=== PATIENT | female | born 1940 | race Caucasian/White ===

== ENCOUNTER 2018-06-19 18:37 | Emergency (ER) | payer OTHER ==
--- NOTE | 2018-06-19 19:59 | PDOC ---
History of Present Illness - General Stated Complaint: FALL Time Seen by Provider: 06/19/18 19:30 History Source: Patient, Family (son) Exam Limitations: No Limitations - History of Present Illness Initial Comments: 06/19/18 20:17 Pt is a 78yo F with PMH of Afib (on Eliquis), CAD, DM, HTN, HLD presenting to ED s/p fall. Pt states she was walking outside and tripped over an uneven part of the sidewalk and fell into a glass door of her building. She states the glass broke and she hit her head and hurt her R arm. She is complaining of pain in the R shoulder with numbness in the 4th and 5th digits, decreased ROM of the shoulder and bleeding from the lip. She also endorses headache. She denies LOC, chest pain, neck pain, blurry vision, SOB, abdominal pain, n/v/d, changes in vision. Slight pain in the L knee. PMD: Andronkaterine Cards: Feliberto PMH: see hpi Meds: see med rec Allergies: nkda Past History - Past Medical History Allergies/Adverse Reactions: Allergies Allergy/AdvReac Type Severity Reaction Status Date / Time No Known Allergies Allergy Verified 06/19/18 20:56 Home Medications: Ambulatory Orders Ezetimibe [Zetia] 10 mg PO DAILY 01/09/14 Rosuvastatin Calcium [Crestor] 40 mg PO DAILY 01/09/14 Glipizide [Glipizide ER] 2.5 mg PO DAILY 07/06/15 Pregabalin [Lyrica] 50 cap PO 1000 07/06/15 Ranitidine [Zantac -] 150 mg PO DAILY tablet 07/08/15 Clopidogrel Bisulfate [Plavix -] 75 mg PO DAILY 02/05/16 Apixaban [Eliquis -] 5 mg PO BID tablet 02/08/16 Valsartan [Diovan] 320 mg PO DAILY tablet 02/08/16 levoFLOXacin [Levaquin -] 250 mg PO DAILY 7 Days tablet 02/08/16 oxyCODONE HCL [Roxicodone -] 5 mg PO Q6H PRN #0 tablet MDD 4 tab 02/08/16 Cardiac Disorders: Yes Diabetes: Yes HTN: Yes Hypercholesterolemia: Yes - Surgical History Abdominal Surgery: Yes Appendectomy: Yes - Suicide/Smoking/Psychosocial Hx Smoking History: Never smoked Have you smoked in the past 12 months: No Hx Alcohol Use: No Drug/Substance Use Hx: No Substance Use Type: None Review of Systems - Review of Systems Constitutional: No: Chills, Fever HEENTM: Yes: Other (lip bleeding). No: Eye Pain, Blurred Vision, Double Vision Respiratory: No: Cough, Shortness of Breath Cardiac (ROS): No: Chest Pain, Lightheadedness, Palpitations, Syncope ABD/GI: No: Constipated, Diarrhea, Nausea, Vomiting : No: Symptoms Reported Musculoskeletal: Yes: See HPI, Other (R shoulder pain) Integumentary: Yes: Other (abrasions) Neurological: Yes: See HPI, Numbness. No: Headache, Paresthesia, Tingling, Tremors, Weakness, Ataxia, Dizziness *Physical Exam - Physical Exam General Appearance: Yes: Appropriately Dressed, Severe Distress, Obese HEENT: positive: EOMI, KUSHAL, Pharynx Normal, Other (superficial inner upper lip lacearation 1-2mm, no other oral lesions. Dried blood around mouth. No nasal bleeding or hematoma). negative: Scleral Icterus (R), Scleral Icterus (L) Respiratory/Chest: positive: Lungs Clear, Normal Breath Sounds. negative: Crackles, Rales, Rhonchi, Stridor, Wheezing Cardiovascular: positive: Regular Rhythm, Regular Rate, S1, S2. negative: Edema , JVD, Murmur Vascular Pulses: Carotid (R): 2+, Carotid (L): 2+, Dorsalis-Pedis (R): 2+, Doralis-Pedis (L): 2+ Musculoskeletal: positive: Other (R shoulder pain. Full rom of elbow, wrist and fingers, no weakness. deformed R shoulder. ). negative: CVA Tenderness, Vertebral Tenderness Extremity: positive: Normal Capillary Refill, Swelling (chronic leg swelling ). negative: Calf Tenderness Integumentary: positive: Normal Color, Dry, Warm, Bruising (upper lip), Other ( abrasions over L knuckles). 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 negative: Sensory Deficit Procedures - Joint Reduction Right Joint Reduction Site: right: Shoulder Pre-Procedure NV Exam: normal Conscious Sedation: Yes (Propafol) Reduction Attempts: 2 Procedure: Traction Counter Traction Post-Procedure NV Exam: normal Post Joint Reduction Film: joint reduced Immobilized: Yes ED Treatment Course - LABORATORY CBC & Chemistry Diagram: 06/19/18 19:49 06/19/18 19:49 Medical Decision Making - Medical Decision Making 06/19/18 20:20 Pt is a 78yo F with PMH of Afib (on Eliquis), CAD, DM, HTN, HLD presenting to ED s/p fall. Pt states she was walking outside and tripped over an uneven part of the sidewalk and fell into a glass door of her building. She states the glass broke and she hit her head and hurt her R arm. She is complaining of pain in the R shoulder with numbness in the 4th and 5th digits, decreased ROM of the shoulder and bleeding from the lip. She also endorses headache. She denies LOC, chest pain, neck pain, blurry vision, SOB, abdominal pain, n/v/d, changes in vision. Slight pain in the L knee. Vitals: PE: R shoulder deformity, ttp R humerous, no lacerations on arm. Dried blood around lips with cut under top lip (superficial), teeth in place, no chipping. Reduced R arm ROM, full rom at elbow, wrist and fingers. sensation intact. radial pulse and brachial pulse of R arm palpable, normal cap refill. No vertebral tenderness, cranial nerves intact, pelvis stable. No knee or hip pain. -fracture v. dislocation -cbc, cmp, coags -CT head, cspine, facial bones, Xray of chest, shoulder and humerus -4mg iv morphine placed pt in sling for comfort 06/19/18 21:10 Pt still in pain. Ordered Fentanyl labs wnl. Cr at baseline. Imaging pending. 06/20/18 01:17 CT head, Cspine and facial bones wnl, no changes in hemangioma found on CT. Xray shows shoulder dislocation, no fractures. pt consented to conscious sedation for reduction. performed by Dr. Fernandez. I peformed traction-counter traction to reduce shoulder. I felt shoulder pop into place. Repeat xray showed shoulder still dislocated. Repeated traction counter traction, shoulder popped back in, normal contour. Repeat xray shows relocation. Pt tolerated procedure well. Reporting decreased pain. Able to range fingers, wrist and elbows. No neurological deficits. Normal capillary refill, pulses palpable. Pt able to ambulate. No neurological deficits. Will give night dose of eliquis and DC home. Given referral to ortho Gave Tylenol [id number]. 06/20/18 01:49 *DC/Admit/Observation/Transfer Diagnosis at time of Disposition: Fall Qualifiers: Encounter type: initial encounter Qualified Code(s): W19.XXXA - Unspecified fall, initial encounter Head injury Qualifiers: Encounter type: initial encounter Qualified Code(s): S09.90XA - Unspecified injury of head, initial encounter Shoulder dislocation Qualifiers: Encounter type: initial encounter Laterality: right Qualified Code(s): S43.004A - Unspecified dislocation of right shoulder joint, initial encounter - Discharge Dispostion Disposition: HOME Condition at time of disposition: Improved Decision to Admit order: No - Referrals Referrals: Josefina Villalba [Primary Care Provider] - Dayton Rosales MD [Staff Physician] - Jacky Young MD [Staff Physician] - Selvin Archer DO [Staff Physician] - - Patient Instructions Printed Discharge Instructions: DI for Shoulder Dislocation Additional Instructions: You were seen in the emergency room today after a fall and shoulder pain. The CT was normal. The xray showed a dislocated shoulder. We put the shoulder back into place. I would recommend making an appointment with an orthopedist. You can see Dr. Rosales, Dr. Schafer or Dr. Lindsay make sure you make an appointment with Dr. Villalba as well. Please keep your shoulder in the sling. You can take Tylenol for the pain as needed. Come back to the emergency room if pain gets worse, you have numbness in the arm or hands, you feel dizzy, you feel nauseous, you start throwing up, you pass out, you have worsening vision or if any new concerning symptom develops Thank you - Post Discharge Activity
[2018-06-19] MEDS ORDERED: morphine CARPU-JECT 4 MG/1 ML DISP.SYRIN IVPUSH ONE (20:00)
[2018-06-19] MEDS ORDERED: morphine SULFATE 4 MG/ML VIAL ONE (20:01)
--- NOTE | 2018-06-19 20:01 | PDOC ---
Attending Attestation - HPI HPI: 06/19/18 21:31 The patient is a 78-year-old female with a past medical history significant for Afib (on Eliquis), CAD, DM, HTN, HLD presents to the emergency department s/p a fall. The patient reports she was walking when she tripped on an uneven part of the sidewalk and fell onto a glass door. The patient states she broke the glass and sustained an injury to the right arm. The patient reports associated symptoms of numbness to the 4th and 5th fingers and pain to the L. Knee. Denies LOC, chest pain, blurry vision, numbness elsewhere. The patient is on Eliquis. Allergies: NKDA PCP: Dr. Mikael Villalba. - Physicial Exam PE: 06/19/18 21:40 GENERAL: Awake, alert, and fully oriented, in acute distress HEAD: No signs of trauma EYES: PERRLA, EOMI, sclera anicteric, conjunctiva clear ENT: teeth intact. Auricles normal inspection, hearing grossly normal, nares patent, oropharynx clear without exudates. Moist mucosa NECK: Normal ROM, supple, no lymphadenopathy, JVD, or masses LUNGS: Breath sounds equal, clear to auscultation bilaterally. No wheezes, and no crackles HEART: Regular rate and rhythm, normal S1 and S2, no murmurs, rubs or gallops ABDOMEN: Soft, nontender. No guarding, no rebound. No masses No C spine or L spine tenderness. No step-offs or deformities. EXTREMITIES: +right shoulder deformity, with deformities to the humoral area. Sensation intact distally, radial pulse intact, brisk cap refill. Left upper extremity full range of motion. no edema. No clubbing or cyanosis. No cords, erythema. NEUROLOGICAL: Cranial nerves II through XII grossly intact. Normal speech. SKIN: +ecchymosis to the upper lip, small laceration to the inside of the upper lip, didnt go through and through, not actively bleeding. abrasions to the face. Warm, Dry, normal turgor, no rashes or lesions noted. - Medical Decision Making 06/19/18 21:40 Documentation prepared by Mary Shirley, acting as medical pathology teacher for Naye Copeland DO. <Mary Shirley - Last Filed: 06/19/18 21:43> - Resident Resident Name: Rhiannon Eisenberg - ED Attending Attestation I have performed the following: I have examined & evaluated the patient, The case was reviewed & discussed with the resident, I agree w/resident's findings & plan, Exceptions are as noted - Medical Decision Making 06/19/18 20:01 I, Dr. Naye Copeland, DO, attest that this document has been prepared under my direction and personally reviewed by me in its entirety. I further attest, that it accurately reflects all work, treatment, procedures and medical decision -making performed by me. 06/19/18 21:20 a/p: 78yo female with a mechanical fall into a window with acute pain to the RUE -pt with deformity to the R shoulder -pt with acute pain -pt with facial abrasions, small lip lac -tetanus utd -pt is on anticoag -will obtain head, c spine, facial bone ct -will send labs -will need xray R shoulder- concern for fx dislocation -pain control -will monitor and reassess 06/19/18 21:22 -head ct, facial bones, c spine ct does not show acute changes 06/19/18 21:45 pt with a shoulder dislocation last po intake was 3p will give conscious sedation to reduce the shoulder 06/19/18 21:46 resident obtaining consent for conscious sedation and reduction of the dislocated shoulder 06/19/18 22:46 shoulder has been reduced pt placed in a sling neurovasc intact distal 06/20/18 00:34 pt neuro intact pt has tolerated po will ambulate shoulder in a sling 06/20/18 00:56 pt ambulatory with a steady gait stable for dc to home will give orthopedic follow up <Naye Copeland - Last Filed: 06/20/18 00:56>
[2018-06-19 20:11] LABS: BASO % 0.5 % (0-2.0); EOS % 0.8 % (0-4.5); HEMATOCRIT 41.3 % (32.4-45.2); LYMPH % 10.5 % (8-40); MCH 30.9 pg (25.7-33.7); MEAN CELL VOLUME 90.9 fl (80-96); MEAN PLT VOLUME 7.4 fl (7.5-11.1); MONO % 9.7 % (3.8-10.2); NEUT % 78.5 % (42.8-82.8); PLATELET COUNT 250 K/MM3 (134-434); RBC 4.54 M/mm3 (3.60-5.2); RDW 15.7 % (11.6-15.6); WHITE BLOOD COUNT 8.8 K/mm3 (4.0-10.0)
[2018-06-19 20:31] LABS: INR 1.03 (0.83-1.09); PROTHROMBIN TIME (PATIENT) 12.2 SEC (9.7-13.0)
[2018-06-19 20:34] LABS: ACTIVATED PTT 31.3 SECONDS (25.2-36.5)
[2018-06-19 20:56] LABS: ALBUMIN 3.7 g/dl (3.4-5.0); ALK PHOS 63 U/L (45-117); ANION GAP 10 MMOL/L (8-16); BILIRUBIN,TOTAL 0.8 mg/dL (0.2-1); BLOOD UREA NITROGEN 24 mg/dL (7-18); CALCIUM 8.7 mg/dL (8.5-10.1); CHLORIDE 104 mmol/L (98-107); CO2 25 mmol/L (21-32); CREATININE 1.4 mg/dL (0.55-1.3); POTASSIUM 3.5 mmol/L (3.5-5.1); SGOT/AST 32 U/L (15-37); SGPT/ALT 29 U/L (13-61); SODIUM 138 mmol/L (136-145)
[2018-06-19 20:57] VITALS: PULSE 62; TEMP 98.7; BMI 75.6
[2018-06-19 21:04] LABS: GLUCOSE,RANDOM 334 mg/dL (74-106)
[2018-06-19] MEDS ORDERED: ONDANSETRON 4 MG/2 ML VIAL IVPUSH ONE (21:46)
[2018-06-19] MEDS ORDERED: PROPOFOL 200 MG/20 ML VIAL IVPUSH ONE (21:47)
[2018-06-19] MEDS ORDERED: SODIUM CHLORIDE 0.9% 1000 ML INFUS.BAG IV ONE (21:56)
[2018-06-19] MEDS ORDERED: PROPOFOL 20 ML ONE (22:06)
[2018-06-19] MEDS ORDERED: ONDANSETRON 4 MG/2 ML VIAL ONE (22:07)
[2018-06-20 00:23] VITALS: BP 154/62
[2018-06-20] MEDS ORDERED: APIXABAN 5 MG TABLET PO ONE ×2 (00:31→01:33)
[2018-06-20] MEDS ORDERED: BACITRACIN 15 GM TUBE TOPICAL OINTMENT TP ONE (00:42)
[2018-06-20] MEDS ORDERED: ACETAMINOPHEN 500 MG TABLET (FP) PO ONE (01:44)
[2018-06-20] MEDS ORDERED: ACETAMINOPHEN 325 MG TABLET (FP) ONE (01:44)
== END 2018-06-20 02:21 | disposition home or self-care (01) ==
LOC: SUPCPDRO 18:37 → JER 18:37
PROC: 0RSJXZZ Reposition Right Shoulder Joint, External Approach (ICD-10-PCS; principal; 2018-06-19)
PROC: 3E033GC Introduction of Other Therapeutic Substance into Peripheral Vein, Percutaneous Approach (ICD-10-PCS; 2018-06-19)
PROC: 3E033GC Introduction of Other Therapeutic Substance into Peripheral Vein, Percutaneous Approach (ICD-10-PCS; 2018-06-19)
PROC: 3E033NZ Introduction of Analgesics, Hypnotics, Sedatives into Peripheral Vein, Percutaneous Approach (ICD-10-PCS; 2018-06-19)
PROC: 3E033FZ Introduction of Intracirculatory Anesthetic into Peripheral Vein, Percutaneous Approach (ICD-10-PCS; 2018-06-19)
DX: S43.084A Other dislocation of right shoulder joint, initial encounter (principal); S09.8XXA Other specified injuries of head, initial encounter; W01.110A Fall on same level from slipping, tripping and stumbling with subsequent striking against sharp glass, initial encounter; Y93.89 Activity, other specified; Y92.480 Sidewalk as the place of occurrence of the external cause; Y99.8 Other external cause status
CPT/HCPCS: 36415; 70450-TC; 70486-TC; 71045-TC-FY; 72125-TC; 73030-TC-RT-FY; 73060-TC-RT-FY; 80053; 85025; 85610; 85730; 99284-25; J7030

== ENCOUNTER 2018-09-04 09:44 | Day surgery (SDC) | payer OTHER | END 2018-09-04 15:50 | disposition home or self-care (01) | LOC: FASU 09:44 ==

== ENCOUNTER 2020-12-08 15:42 | Inpatient (IN) | payer OTHER ==
[2020-12-08 16:02] VITALS: BMI 32.3
[2020-12-08] MEDS ORDERED: DEXAMETHASONE SOD PHOSPHATE 4 MG/1 ML VIAL IVPUSH ONE (16:35)
[2020-12-08] MEDS ORDERED: DEXAMETHASONE SOD PHOSPHATE 4 MG/1 ML VIAL ONE (16:41)
[2020-12-08 17:10] LABS: BASO % 0.3 % (0-2.0); HEMATOCRIT 33.4 % (32.4-45.2); HEMOGLOBIN 11.4 GM/dL (10.7-15.3); MCH 30.8 pg (25.7-33.7); MCHC 34.1 g/dl (32.0-36.0); MEAN CELL VOLUME 90.3 fl (80-96); MEAN PLT VOLUME 7.6 fl (7.5-11.1); MONO % 11.3 % (3.8-10.2); NEUT % 79.4 % (42.8-82.8); PLATELET COUNT 159 10^3/uL (134-434); RDW 15.2 % (11.6-15.6); WHITE BLOOD COUNT 5.6 K/mm3 (4.0-10.0)
[2020-12-08 17:17] LABS: INR 1.8 (0.83-1.09); PROTHROMBIN TIME (PATIENT) 21.8 SEC (9.7-13.0)
[2020-12-08 17:19] LABS: ACTIVATED PTT 37.9 SECONDS (25.2-36.5)
[2020-12-08 17:44] LABS: ALBUMIN 2.5 g/dl (3.4-5.0); CALCIUM 7.1 mg/dL (8.5-10.1); CO2 22 mmol/L (21-32); GLUCOSE,RANDOM 213 mg/dL (74-106)
[2020-12-08 17:45] LABS: BLOOD UREA NITROGEN 33.6 mg/dL (7-18); MAGNESIUM 2.2 mg/dL (1.8-2.4)
[2020-12-08] MEDS ORDERED: CEFTRIAXONE 1 GM in DEXTROSE 5%-WATER - 50 ML IVPB ONE (17:45)
[2020-12-08] MEDS ORDERED: ENOXAPARIN NA (PORCINE) 40 MG/0.4 ML DISP.SYRIN SQ SCH (17:45)
[2020-12-08] MEDS ORDERED: AZITHROMYCIN IVPB 500 MG in DEXTROSE 5%-WATER - 250 ML IVPB ONE (17:46)
[2020-12-08 17:47] LABS: CREATININE 1.5 mg/dL (0.55-1.3); SGPT/ALT 33 U/L (13-61)
[2020-12-08 17:48] LABS: SGOT/AST 49 U/L (15-37)
[2020-12-08 17:49] LABS: BILIRUBIN,TOTAL 0.6 mg/dL (0.2-1); LDH 419 U/L (84-246); TOT PROT 6.1 g/dl (6.4-8.2)
[2020-12-08 17:50] LABS: ALK PHOS 37 U/L (45-117)
[2020-12-08] MEDS ORDERED: AZITHROMYCIN IVPB 500 MG/250 ML BAG IVPB ONE (17:52)
[2020-12-08 17:53] LABS: N-TERMINAL BNP 724.9 pg/ml (5-450)
[2020-12-08 18:01] LABS: ANION GAP 11 MMOL/L (8-16); CHLORIDE 102 mmol/L (98-107); SODIUM 135 mmol/L (136-145)
[2020-12-08] MEDS ORDERED: SODIUM CHLORIDE 1,000 ML IV STA (18:21)
[2020-12-08 20:52] LABS: EPI CELLS 10 /uL (0-25.1); HYALINE CASTS 0 /uL (0-3.1); URINE APPEARANCE CLEAR; URINE BILIRUBIN NEGATIVE (NEGATIVE); URINE COLOR YELLOW; URINE GLUCOSE (UA) TRACE (NEGATIVE); URINE KETONE NEGATIVE (NEGATIVE); URINE LEUK ESTERASE TRACE (NEGATIVE); URINE NITRITE POSITIVE (NEGATIVE); URINE PROTEIN TRACE (NEGATIVE); URINE RBC 6 /uL (0-23.9); URINE WBC 63 /uL (0-25.8)
[2020-12-08] MEDS: APIXABAN 5 MG TABLET PO SCH (22:59)
[2020-12-09] MEDS ORDERED: glipiZIDE-XL 2.5 MG TAB.ER.24 PO SCH ×2 (07:00→13:15)
[2020-12-09 07:07] LABS: BASO % 0.1 % (0-2.0); HEMATOCRIT 32.9 % (32.4-45.2); HEMOGLOBIN 11.3 GM/dL (10.7-15.3); LYMPH % 12.7 % (8-40); MCH 30.9 pg (25.7-33.7); MCHC 34.2 g/dl (32.0-36.0); MEAN CELL VOLUME 90.3 fl (80-96); MEAN PLT VOLUME 7.9 fl (7.5-11.1); MONO % 9.5 % (3.8-10.2); NEUT % 77.7 % (42.8-82.8); PLATELET COUNT 147 10^3/uL (134-434); RBC 3.64 M/mm3 (3.60-5.2); RDW 15.2 % (11.6-15.6); WHITE BLOOD COUNT 3.2 K/mm3 (4.0-10.0)
[2020-12-09 07:16] LABS: CALCIUM 7.1 mg/dL (8.5-10.1)
[2020-12-09 07:17] LABS: ALBUMIN 2.3 g/dl (3.4-5.0); BLOOD UREA NITROGEN 34.7 mg/dL (7-18)
[2020-12-09 07:19] LABS: BILIRUBIN,TOTAL 0.6 mg/dL (0.2-1)
[2020-12-09 07:20] LABS: CREATININE 1.4 mg/dL (0.55-1.3); TOT PROT 5.7 g/dl (6.4-8.2)
[2020-12-09] MEDS: DEXAMETHASONE SOD PHOSPHATE 4 MG/1 ML VIAL IVPUSH SCH (10:33)
[2020-12-09] MEDS: HYDROCHLOROTHIAZIDE 25 MG TABLET (FP) PO SCH (10:35)
[2020-12-09] MEDS: LOSARTAN POTASSIUM 50 MG TABLET PO SCH (10:35)
[2020-12-09] MEDS: APIXABAN 5 MG TABLET PO SCH ×2 (10:35→21:15)
[2020-12-09] MEDS: EZETIMIBE 10 MG TABLET (FP) PO SCH (10:35)
[2020-12-09] MEDS: INSULIN SLIDING SCALE (NOVOLOG) 1 VIAL SQ SCH ×3 (11:21→21:29)
[2020-12-09] MEDS ORDERED: ALBUTEROL SO4 0.042% IH SOL 1.25 MG/3 ML VIAL.NEB NEB PRN (12:19)
[2020-12-09] MEDS ORDERED: ALBUTEROL SO4 HFA INHALER IH PRN (12:23)
[2020-12-09] MEDS: FUROSEMIDE 40 MG/4 ML INJECTABLE VIAL IVPUSH SCH (13:00)
[2020-12-09] MEDS ORDERED: REMDESIVIR 200 MG in SODIUM CHLORIDE 250 ML IVPB ONE (14:00)
[2020-12-09] MEDS ORDERED: glipiZIDE-XL 2.5 MG TAB.ER.24 PO ONE (14:00)
[2020-12-09] MEDS: ROSUVASTATIN CA 20 MG TABLET (FP) PO SCH (21:15)
[2020-12-09] MEDS: BUDESONIDE/FORMETEROL FUMARATE 160/4.5 mcg INHALER IH SCH (21:30)
[2020-12-10] MEDS: glipiZIDE-XL 5 MG TAB.ER.24 PO SCH (06:11)
[2020-12-10] MEDS: INSULIN SLIDING SCALE (NOVOLOG) 1 VIAL SQ SCH ×4 (06:11→21:23)
[2020-12-10 07:47] LABS: BASO % 0.1 % (0-2.0); HEMATOCRIT 37.5 % (32.4-45.2); HEMOGLOBIN 12.7 GM/dL (10.7-15.3); LYMPH % 7.8 % (8-40); MCHC 33.8 g/dl (32.0-36.0); MEAN CELL VOLUME 91.7 fl (80-96); MEAN PLT VOLUME 7.9 fl (7.5-11.1); MONO % 7.9 % (3.8-10.2); NEUT % 84.2 % (42.8-82.8); PLATELET COUNT 176 10^3/uL (134-434); RBC 4.09 M/mm3 (3.60-5.2); RDW 15.5 % (11.6-15.6); WHITE BLOOD COUNT 5.9 K/mm3 (4.0-10.0)
[2020-12-10 08:20] LABS: ALBUMIN 2.4 g/dl (3.4-5.0); BILIRUBIN,TOTAL 0.4 mg/dL (0.2-1); BLOOD UREA NITROGEN 41.1 mg/dL (7-18); CALCIUM 7.9 mg/dL (8.5-10.1); CREATININE 1.5 mg/dL (0.55-1.3)
[2020-12-10] MEDS ORDERED: PT OWN MED DRAWER 7, Y5N ONE ×2 (09:48→12:59)
[2020-12-10] MEDS: FUROSEMIDE 40 MG/4 ML INJECTABLE VIAL IVPUSH SCH (09:55)
[2020-12-10] MEDS: DEXAMETHASONE SOD PHOSPHATE 4 MG/1 ML VIAL IVPUSH SCH (09:55)
[2020-12-10] MEDS: LOSARTAN POTASSIUM 50 MG TABLET PO SCH (09:57)
[2020-12-10] MEDS: HYDROCHLOROTHIAZIDE 25 MG TABLET (FP) PO SCH (09:57)
[2020-12-10] MEDS: BUDESONIDE/FORMETEROL FUMARATE 160/4.5 mcg INHALER IH SCH ×2 (09:57→21:24)
[2020-12-10] MEDS: APIXABAN 5 MG TABLET PO SCH ×2 (09:57→21:23)
[2020-12-10] MEDS: EZETIMIBE 10 MG TABLET (FP) PO SCH (09:58)
[2020-12-10] MEDS: KCL 10 MEQ IVPB 10 MEQ/100 ML INFUS.BAG IVPB SCH ×4 (12:00→15:19)
[2020-12-10] MEDS: BARICITINIB 2 MG TABLET PO SCH (13:31)
[2020-12-10] MEDS: REMDESIVIR 100 MG in SODIUM CHLORIDE 250 ML IVPB SCH (13:32)
[2020-12-10 15:30] LABS: MAGNESIUM 2.4 mg/dL (1.8-2.4)
[2020-12-10] MEDS: POTASSIUM CHLORIDE TABS 10 MEQ TABLET.ER (FP) PO SCH ×2 (15:43→21:23)
[2020-12-10] MEDS: ACETAMINOPHEN 325 MG TABLET (FP) PO PRN (20:12)
[2020-12-10] MEDS: guaiFENesin/D-METHORPHAN HB 10 ML UNIT-DOSE CUPS PO PRN (20:12)
[2020-12-10] MEDS: ROSUVASTATIN CA 20 MG TABLET (FP) PO SCH (21:23)
[2020-12-11] MEDS: INSULIN SLIDING SCALE (NOVOLOG) 1 VIAL SQ SCH ×4 (06:28→21:49)
[2020-12-11] MEDS: glipiZIDE-XL 5 MG TAB.ER.24 PO SCH (06:29)
[2020-12-11 07:33] LABS: BASO % 0.1 % (0-2.0); HEMATOCRIT 37.2 % (32.4-45.2); HEMOGLOBIN 12.8 GM/dL (10.7-15.3); LYMPH % 8.7 % (8-40); MCH 31.1 pg (25.7-33.7); MCHC 34.4 g/dl (32.0-36.0); MEAN CELL VOLUME 90.4 fl (80-96); MEAN PLT VOLUME 7.8 fl (7.5-11.1); MONO % 10.3 % (3.8-10.2); NEUT % 80.9 % (42.8-82.8); PLATELET COUNT 221 10^3/uL (134-434); RBC 4.12 M/mm3 (3.60-5.2); WHITE BLOOD COUNT 6.1 K/mm3 (4.0-10.0)
[2020-12-11 07:58] LABS: ALBUMIN 2.4 g/dl (3.4-5.0)
[2020-12-11 07:59] LABS: BLOOD UREA NITROGEN 45.7 mg/dL (7-18); CALCIUM 8.4 mg/dL (8.5-10.1)
[2020-12-11 08:01] LABS: BILIRUBIN,TOTAL 0.5 mg/dL (0.2-1)
[2020-12-11 08:02] LABS: CREATININE 1.4 mg/dL (0.55-1.3); MAGNESIUM 2.3 mg/dL (1.8-2.4); TOT PROT 5.9 g/dl (6.4-8.2)
[2020-12-11] MEDS: APIXABAN 5 MG TABLET PO SCH ×2 (09:33→21:00)
[2020-12-11] MEDS: POTASSIUM CHLORIDE TABS 10 MEQ TABLET.ER (FP) PO SCH (09:33)
[2020-12-11] MEDS: LOSARTAN POTASSIUM 50 MG TABLET PO SCH (09:33)
[2020-12-11] MEDS: EZETIMIBE 10 MG TABLET (FP) PO SCH (09:33)
[2020-12-11] MEDS: DEXAMETHASONE SOD PHOSPHATE 4 MG/1 ML VIAL IVPUSH SCH (09:34)
[2020-12-11] MEDS: BUDESONIDE/FORMETEROL FUMARATE 160/4.5 mcg INHALER IH SCH ×2 (09:34→21:01)
[2020-12-11] MEDS: HYDROCHLOROTHIAZIDE 25 MG TABLET (FP) PO SCH (09:34)
[2020-12-11] MEDS: FUROSEMIDE 40 MG/4 ML INJECTABLE VIAL IVPUSH SCH (09:34)
[2020-12-11] MEDS ORDERED: PT OWN MED DRAWER 7, Y5N ONE ×2 (11:04→11:34)
[2020-12-11] MEDS: BARICITINIB 2 MG TABLET PO SCH (12:08)
[2020-12-11] MEDS: REMDESIVIR 100 MG in SODIUM CHLORIDE 250 ML IVPB SCH (14:52)
[2020-12-11] MEDS: ROSUVASTATIN CA 20 MG TABLET (FP) PO SCH (21:00)
[2020-12-11] MEDS ORDERED: POTASSIUM CHLORIDE TABS 10 MEQ TABLET.ER (FP) PO ONE (22:00)
[2020-12-12] MEDS: INSULIN SLIDING SCALE (NOVOLOG) 1 VIAL SQ SCH ×4 (06:31→22:05)
[2020-12-12] MEDS: glipiZIDE-XL 5 MG TAB.ER.24 PO SCH (06:31)
[2020-12-12 06:56] LABS: BASO % 0.1 % (0-2.0); HEMATOCRIT 38.5 % (32.4-45.2); HEMOGLOBIN 13.4 GM/dL (10.7-15.3); MCH 30.9 pg (25.7-33.7); MCHC 34.7 g/dl (32.0-36.0); MEAN CELL VOLUME 89.1 fl (80-96); MEAN PLT VOLUME 7.3 fl (7.5-11.1); MONO % 10.4 % (3.8-10.2); NEUT % 79.5 % (42.8-82.8); PLATELET COUNT 249 10^3/uL (134-434); RBC 4.32 M/mm3 (3.60-5.2); WHITE BLOOD COUNT 6.9 K/mm3 (4.0-10.0)
[2020-12-12 07:10] LABS: CALCIUM 8.6 mg/dL (8.5-10.1)
[2020-12-12 07:11] LABS: ALBUMIN 2.6 g/dl (3.4-5.0); BLOOD UREA NITROGEN 42.5 mg/dL (7-18)
[2020-12-12 07:14] LABS: CREATININE 1.4 mg/dL (0.55-1.3)
[2020-12-12 07:15] LABS: BILIRUBIN,TOTAL 0.6 mg/dL (0.2-1); TOT PROT 6.4 g/dl (6.4-8.2)
[2020-12-12] MEDS ORDERED: PT OWN MED DRAWER 7, Y5N ONE (09:18)
[2020-12-12] MEDS: DEXAMETHASONE SOD PHOSPHATE 4 MG/1 ML VIAL IVPUSH SCH (09:51)
[2020-12-12] MEDS: guaiFENesin/D-METHORPHAN HB 10 ML UNIT-DOSE CUPS PO PRN (09:53)
[2020-12-12] MEDS: FUROSEMIDE 40 MG/4 ML INJECTABLE VIAL IVPUSH SCH (09:53)
[2020-12-12] MEDS: ACETAMINOPHEN 325 MG TABLET (FP) PO PRN (09:53)
[2020-12-12] MEDS: LOSARTAN POTASSIUM 50 MG TABLET PO SCH (09:54)
[2020-12-12] MEDS: APIXABAN 5 MG TABLET PO SCH ×2 (09:54→22:00)
[2020-12-12] MEDS: HYDROCHLOROTHIAZIDE 25 MG TABLET (FP) PO SCH (09:54)
[2020-12-12] MEDS: EZETIMIBE 10 MG TABLET (FP) PO SCH (09:54)
[2020-12-12] MEDS: BUDESONIDE/FORMETEROL FUMARATE 160/4.5 mcg INHALER IH SCH ×2 (09:55→22:06)
[2020-12-12] MEDS: BARICITINIB 2 MG TABLET PO SCH (09:55)
[2020-12-12] MEDS ORDERED: POTASSIUM CHLORIDE TABS 20 MEQ TABLET.ER (FP) PO ONE (13:25)
[2020-12-12] MEDS ORDERED: METOPROLOL TARTRATE 25 MG TABLET (FP) PO SCH ×2 (13:30)
[2020-12-12] MEDS: REMDESIVIR 100 MG in SODIUM CHLORIDE 250 ML IVPB SCH (13:40)
[2020-12-12] MEDS: METOPROLOL TARTRATE 25 MG TABLET (FP) PO SCH ×2 (14:05→22:59)
[2020-12-12] MEDS: ROSUVASTATIN CA 20 MG TABLET (FP) PO SCH (22:00)
[2020-12-12] MEDS: INSULIN (LEVEMIR) 100 UNITS/ML UNITS SQ SCH (22:05)
[2020-12-13] MEDS: INSULIN SLIDING SCALE (NOVOLOG) 1 VIAL SQ SCH ×4 (06:12→21:19)
[2020-12-13] MEDS: glipiZIDE-XL 5 MG TAB.ER.24 PO SCH (06:12)
[2020-12-13] MEDS ORDERED: SODIUM CHLORIDE 250 ML IV SCH (08:52)
[2020-12-13 08:55] LABS: EOS % 0.1 % (0-4.5); HEMATOCRIT 41.4 % (32.4-45.2); HEMOGLOBIN 14.1 GM/dL (10.7-15.3); LYMPH % 7.3 % (8-40); MCH 30.5 pg (25.7-33.7); MCHC 34.1 g/dl (32.0-36.0); MEAN CELL VOLUME 89.5 fl (80-96); MEAN PLT VOLUME 7.6 fl (7.5-11.1); MONO % 8.6 % (3.8-10.2); PLATELET COUNT 266 10^3/uL (134-434); RBC 4.63 M/mm3 (3.60-5.2); RDW 14.6 % (11.6-15.6); WHITE BLOOD COUNT 12.7 K/mm3 (4.0-10.0)
[2020-12-13 09:10] LABS: CALCIUM 8.9 mg/dL (8.5-10.1)
[2020-12-13 09:11] LABS: BLOOD UREA NITROGEN 43.5 mg/dL (7-18)
[2020-12-13 09:14] LABS: ALBUMIN 2.5 g/dl (3.4-5.0); CREATININE 1.3 mg/dL (0.55-1.3)
[2020-12-13 09:16] LABS: BILIRUBIN,TOTAL 0.7 mg/dL (0.2-1); TOT PROT 6.2 g/dl (6.4-8.2)
[2020-12-13] MEDS: APIXABAN 5 MG TABLET PO SCH ×2 (09:52→21:19)
[2020-12-13] MEDS: EZETIMIBE 10 MG TABLET (FP) PO SCH (09:52)
[2020-12-13] MEDS: DEXAMETHASONE SOD PHOSPHATE 4 MG/1 ML VIAL IVPUSH SCH (09:52)
[2020-12-13] MEDS: HYDROCHLOROTHIAZIDE 25 MG TABLET (FP) PO SCH (09:53)
[2020-12-13] MEDS: LOSARTAN POTASSIUM 50 MG TABLET PO SCH (09:53)
[2020-12-13] MEDS: BUDESONIDE/FORMETEROL FUMARATE 160/4.5 mcg INHALER IH SCH ×2 (09:53→21:20)
[2020-12-13] MEDS: FUROSEMIDE 40 MG/4 ML INJECTABLE VIAL IVPUSH SCH (09:53)
[2020-12-13] MEDS: METOPROLOL TARTRATE 25 MG TABLET (FP) PO SCH ×2 (09:53→21:19)
[2020-12-13] MEDS ORDERED: PT OWN MED DRAWER 7, Y5N ONE (09:54)
[2020-12-13] MEDS: BARICITINIB 2 MG TABLET PO SCH (09:55)
[2020-12-13] MEDS ORDERED: METOPROLOL TARTRATE 5 MG/5 ML VIAL IVPUSH PRN (12:10)
[2020-12-13] MEDS ORDERED: POTASSIUM CHLORIDE TABS 20 MEQ TABLET.ER (FP) PO ONE (12:15)
[2020-12-13 12:45] LABS: PHOSPHOROUS 3.3 mg/dL (2.5-4.9)
[2020-12-13] MEDS: REMDESIVIR 100 MG in SODIUM CHLORIDE 250 ML IVPB SCH (13:10)
[2020-12-13] MEDS: ROSUVASTATIN CA 20 MG TABLET (FP) PO SCH (21:18)
[2020-12-13] MEDS: INSULIN (LEVEMIR) 100 UNITS/ML UNITS SQ SCH (21:19)
[2020-12-14] MEDS: glipiZIDE-XL 5 MG TAB.ER.24 PO SCH (06:29)
[2020-12-14] MEDS: INSULIN SLIDING SCALE (NOVOLOG) 1 VIAL SQ SCH ×5 (06:30→21:43)
[2020-12-14 07:09] LABS: BASO % 0.1 % (0-2.0); EOS % 0.1 % (0-4.5); HEMATOCRIT 38.3 % (32.4-45.2); HEMOGLOBIN 13.4 GM/dL (10.7-15.3); LYMPH % 10.3 % (8-40); MCH 31.1 pg (25.7-33.7); MEAN PLT VOLUME 7.2 fl (7.5-11.1); MONO % 8.6 % (3.8-10.2); NEUT % 80.9 % (42.8-82.8); PLATELET COUNT 314 10^3/uL (134-434); RBC 4.31 M/mm3 (3.60-5.2); WHITE BLOOD COUNT 10.7 K/mm3 (4.0-10.0)
[2020-12-14 07:46] LABS: ALBUMIN 2.6 g/dl (3.4-5.0); BLOOD UREA NITROGEN 51.4 mg/dL (7-18); CALCIUM 8.5 mg/dL (8.5-10.1)
[2020-12-14 07:49] LABS: CREATININE 1.3 mg/dL (0.55-1.3)
[2020-12-14 07:51] LABS: BILIRUBIN,TOTAL 0.8 mg/dL (0.2-1); TOT PROT 5.9 g/dl (6.4-8.2)
[2020-12-14] MEDS ORDERED: PT OWN MED DRAWER 7, Y5N ONE (10:09)
[2020-12-14] MEDS: HYDROCHLOROTHIAZIDE 25 MG TABLET (FP) PO SCH (10:10)
[2020-12-14] MEDS: METOPROLOL TARTRATE 25 MG TABLET (FP) PO SCH ×2 (10:10→21:33)
[2020-12-14] MEDS: LOSARTAN POTASSIUM 50 MG TABLET PO SCH (10:11)
[2020-12-14] MEDS: APIXABAN 5 MG TABLET PO SCH ×2 (10:11→21:43)
[2020-12-14] MEDS: DEXAMETHASONE SOD PHOSPHATE 4 MG/1 ML VIAL IVPUSH SCH (10:11)
[2020-12-14] MEDS: BARICITINIB 2 MG TABLET PO SCH (10:12)
[2020-12-14] MEDS: BUDESONIDE/FORMETEROL FUMARATE 160/4.5 mcg INHALER IH SCH ×2 (10:12→21:44)
[2020-12-14] MEDS: EZETIMIBE 10 MG TABLET (FP) PO SCH (10:13)
[2020-12-14] MEDS ORDERED: INSULIN (LEVEMIR) 100 UNITS/ML UNITS SQ SCH (18:39)
[2020-12-14] MEDS: ROSUVASTATIN CA 20 MG TABLET (FP) PO SCH (21:43)
[2020-12-14] MEDS: INSULIN (LEVEMIR) 100 UNITS/ML UNITS SQ SCH (21:44)
[2020-12-15] MEDS: INSULIN SLIDING SCALE (NOVOLOG) 1 VIAL SQ SCH ×4 (06:26→22:02)
[2020-12-15] MEDS: glipiZIDE-XL 5 MG TAB.ER.24 PO SCH (06:26)
[2020-12-15 07:44] LABS: EOS % 0.2 % (0-4.5); HEMATOCRIT 38.6 % (32.4-45.2); HEMOGLOBIN 13.1 GM/dL (10.7-15.3); LYMPH % 7.3 % (8-40); MCH 30.4 pg (25.7-33.7); MCHC 33.8 g/dl (32.0-36.0); MEAN PLT VOLUME 7.3 fl (7.5-11.1); MONO % 7.8 % (3.8-10.2); NEUT % 84.7 % (42.8-82.8); PLATELET COUNT 337 10^3/uL (134-434); RDW 14.6 % (11.6-15.6)
[2020-12-15 08:07] LABS: CALCIUM 8.5 mg/dL (8.5-10.1)
[2020-12-15 08:08] LABS: ALBUMIN 2.4 g/dl (3.4-5.0); BLOOD UREA NITROGEN 48.1 mg/dL (7-18)
[2020-12-15 08:11] LABS: CREATININE 1.2 mg/dL (0.55-1.3)
[2020-12-15 08:13] LABS: TOT PROT 5.7 g/dl (6.4-8.2)
[2020-12-15 08:16] LABS: BILIRUBIN,TOTAL 0.6 mg/dL (0.2-1)
[2020-12-15] MEDS ORDERED: PT OWN MED DRAWER 7, Y5N ONE (10:56)
[2020-12-15] MEDS: LOSARTAN POTASSIUM 50 MG TABLET PO SCH (11:15)
[2020-12-15] MEDS: APIXABAN 5 MG TABLET PO SCH ×2 (11:24→21:46)
[2020-12-15] MEDS: DEXAMETHASONE SOD PHOSPHATE 4 MG/1 ML VIAL IVPUSH SCH (11:24)
[2020-12-15] MEDS: HYDROCHLOROTHIAZIDE 25 MG TABLET (FP) PO SCH (11:24)
[2020-12-15] MEDS: BUDESONIDE/FORMETEROL FUMARATE 160/4.5 mcg INHALER IH SCH ×2 (11:25→21:48)
[2020-12-15] MEDS: EZETIMIBE 10 MG TABLET (FP) PO SCH (11:25)
[2020-12-15] MEDS: BARICITINIB 2 MG TABLET PO SCH (11:25)
[2020-12-15] MEDS: METOPROLOL TARTRATE 25 MG TABLET (FP) PO SCH ×2 (11:25→21:47)
[2020-12-15] MEDS: guaiFENesin/CODEINE 10 ML UNIT-DOSE CUPS PO SCH (21:46)
[2020-12-15] MEDS: ROSUVASTATIN CA 20 MG TABLET (FP) PO SCH (21:46)
[2020-12-15] MEDS: INSULIN (LEVEMIR) 100 UNITS/ML UNITS SQ SCH (21:47)
[2020-12-16] MEDS: guaiFENesin/CODEINE 10 ML UNIT-DOSE CUPS PO SCH ×3 (06:08→22:48)
[2020-12-16] MEDS: glipiZIDE-XL 5 MG TAB.ER.24 PO SCH (06:08)
[2020-12-16] MEDS: INSULIN SLIDING SCALE (NOVOLOG) 1 VIAL SQ SCH ×4 (06:20→23:00)
[2020-12-16] MEDS ORDERED: INSULIN SLIDING SCALE (NOVOLOG) 1 VIAL SQ ONE (06:48)
[2020-12-16] MEDS ORDERED: INSULIN (LEVEMIR) 100 UNITS/ML UNITS SQ ONE (06:48)
[2020-12-16 07:17] LABS: BASO % 0.3 % (0-2.0); EOS % 0.1 % (0-4.5); HEMATOCRIT 39.6 % (32.4-45.2); HEMOGLOBIN 13.5 GM/dL (10.7-15.3); LYMPH % 6.9 % (8-40); MCH 30.3 pg (25.7-33.7); MCHC 34.1 g/dl (32.0-36.0); MEAN CELL VOLUME 88.9 fl (80-96); MEAN PLT VOLUME 7.3 fl (7.5-11.1); MONO % 6.8 % (3.8-10.2); NEUT % 85.9 % (42.8-82.8); PLATELET COUNT 302 10^3/uL (134-434); RBC 4.46 M/mm3 (3.60-5.2); RDW 14.8 % (11.6-15.6); WHITE BLOOD COUNT 10.3 K/mm3 (4.0-10.0)
[2020-12-16 08:53] LABS: ALBUMIN 2.3 g/dl (3.4-5.0); CALCIUM 8.5 mg/dL (8.5-10.1)
[2020-12-16 08:54] LABS: BLOOD UREA NITROGEN 42.6 mg/dL (7-18)
[2020-12-16 08:57] LABS: CREATININE 1.1 mg/dL (0.55-1.3)
[2020-12-16 08:58] LABS: BILIRUBIN,TOTAL 0.7 mg/dL (0.2-1); TOT PROT 5.3 g/dl (6.4-8.2)
[2020-12-16] MEDS ORDERED: PT OWN MED DRAWER 7, Y5N ONE (09:12)
[2020-12-16] MEDS: HYDROCHLOROTHIAZIDE 25 MG TABLET (FP) PO SCH (09:53)
[2020-12-16] MEDS: EZETIMIBE 10 MG TABLET (FP) PO SCH (09:53)
[2020-12-16] MEDS: guaiFENesin/D-METHORPHAN HB 10 ML UNIT-DOSE CUPS PO PRN (09:53)
[2020-12-16] MEDS: METOPROLOL TARTRATE 25 MG TABLET (FP) PO SCH (09:54)
[2020-12-16] MEDS: BARICITINIB 2 MG TABLET PO SCH (09:54)
[2020-12-16] MEDS: APIXABAN 5 MG TABLET PO SCH ×2 (09:54→22:49)
[2020-12-16] MEDS: BUDESONIDE/FORMETEROL FUMARATE 160/4.5 mcg INHALER IH SCH (09:54)
[2020-12-16] MEDS: LOSARTAN POTASSIUM 50 MG TABLET PO SCH (09:54)
[2020-12-16] MEDS: DEXAMETHASONE 4 MG TABLET (FP) PO SCH (11:21)
[2020-12-16] MEDS: DEXAMETHASONE SOD PHOSPHATE 4 MG/1 ML VIAL IVPUSH SCH (11:22)
[2020-12-16] MEDS: ROSUVASTATIN CA 20 MG TABLET (FP) PO SCH (22:49)
[2020-12-16] MEDS: INSULIN (LEVEMIR) 100 UNITS/ML UNITS SQ SCH (23:00)
[2020-12-17] MEDS: METOPROLOL TARTRATE 25 MG TABLET (FP) PO SCH ×2 (00:25→09:59)
[2020-12-17] MEDS: BUDESONIDE/FORMETEROL FUMARATE 160/4.5 mcg INHALER IH SCH ×3 (00:26→23:24)
[2020-12-17] MEDS: ACETAMINOPHEN 325 MG TABLET (FP) PO PRN (07:12)
[2020-12-17] MEDS: guaiFENesin/CODEINE 10 ML UNIT-DOSE CUPS PO SCH ×2 (07:12→15:04)
[2020-12-17] MEDS: glipiZIDE-XL 5 MG TAB.ER.24 PO SCH (07:12)
[2020-12-17] MEDS: INSULIN SLIDING SCALE (NOVOLOG) 1 VIAL SQ SCH ×4 (07:20→23:02)
[2020-12-17] MEDS: DEXAMETHASONE 4 MG TABLET (FP) PO SCH (09:58)
[2020-12-17] MEDS: BARICITINIB 2 MG TABLET PO SCH (09:59)
[2020-12-17] MEDS: APIXABAN 5 MG TABLET PO SCH ×2 (09:59→22:59)
[2020-12-17] MEDS: HYDROCHLOROTHIAZIDE 25 MG TABLET (FP) PO SCH (09:59)
[2020-12-17] MEDS: LOSARTAN POTASSIUM 50 MG TABLET PO SCH (09:59)
[2020-12-17] MEDS: EZETIMIBE 10 MG TABLET (FP) PO SCH (09:59)
[2020-12-17] MEDS: ROSUVASTATIN CA 20 MG TABLET (FP) PO SCH (22:59)
[2020-12-17] MEDS: INSULIN (LEVEMIR) 100 UNITS/ML UNITS SQ SCH (23:01)
[2020-12-17] MEDS: guaiFENesin/D-METHORPHAN HB 10 ML UNIT-DOSE CUPS PO PRN (23:02)
[2020-12-18] MEDS: glipiZIDE-XL 5 MG TAB.ER.24 PO SCH (06:14)
[2020-12-18] MEDS: INSULIN SLIDING SCALE (NOVOLOG) 1 VIAL SQ SCH ×4 (06:20→21:51)
[2020-12-18 07:46] LABS: BASO % 0.1 % (0-2.0); HEMATOCRIT 37.8 % (32.4-45.2); HEMOGLOBIN 13.1 GM/dL (10.7-15.3); LYMPH % 5.3 % (8-40); MCH 30.9 pg (25.7-33.7); MCHC 34.7 g/dl (32.0-36.0); MEAN CELL VOLUME 89.1 fl (80-96); MEAN PLT VOLUME 7.4 fl (7.5-11.1); MONO % 6.5 % (3.8-10.2); NEUT % 88.1 % (42.8-82.8); PLATELET COUNT 304 10^3/uL (134-434); RBC 4.25 M/mm3 (3.60-5.2); RDW 14.8 % (11.6-15.6)
[2020-12-18 07:48] LABS: CALCIUM 8.5 mg/dL (8.5-10.1)
[2020-12-18 07:49] LABS: ALBUMIN 2.3 g/dl (3.4-5.0); BLOOD UREA NITROGEN 40.2 mg/dL (7-18)
[2020-12-18 07:52] LABS: CREATININE 1.1 mg/dL (0.55-1.3)
[2020-12-18 07:54] LABS: BILIRUBIN,TOTAL 0.8 mg/dL (0.2-1); TOT PROT 5.4 g/dl (6.4-8.2)
[2020-12-18] MEDS ORDERED: PT OWN MED DRAWER 7, Y5N ONE (09:04)
[2020-12-18] MEDS: LOSARTAN POTASSIUM 50 MG TABLET PO SCH (09:20)
[2020-12-18] MEDS: HYDROCHLOROTHIAZIDE 25 MG TABLET (FP) PO SCH (09:20)
[2020-12-18] MEDS: APIXABAN 5 MG TABLET PO SCH ×2 (09:20→21:41)
[2020-12-18] MEDS: EZETIMIBE 10 MG TABLET (FP) PO SCH (09:20)
[2020-12-18] MEDS: DEXAMETHASONE 4 MG TABLET (FP) PO SCH (09:21)
[2020-12-18] MEDS: BUDESONIDE/FORMETEROL FUMARATE 160/4.5 mcg INHALER IH SCH ×2 (09:21→21:56)
[2020-12-18] MEDS: BARICITINIB 2 MG TABLET PO SCH (09:21)
[2020-12-18] MEDS ORDERED: METOPROLOL TARTRATE 5 MG/5 ML VIAL IVPUSH PRN (14:56)
[2020-12-18] MEDS ORDERED: METOPROLOL TARTRATE 25 MG TABLET (FP) PO ONE (14:56)
[2020-12-18] MEDS ORDERED: IBUPROFEN 600 MG TABLET (FP) PO ONE (15:00)
[2020-12-18] MEDS: dilTIAZem HCL 60 MG TABLET PO SCH (18:29)
[2020-12-18] MEDS: ROSUVASTATIN CA 20 MG TABLET (FP) PO SCH (21:41)
[2020-12-18] MEDS: INSULIN (LEVEMIR) 100 UNITS/ML UNITS SQ SCH (21:50)
[2020-12-19] MEDS: dilTIAZem HCL 60 MG TABLET PO SCH ×4 (00:07→18:36)
[2020-12-19] MEDS: glipiZIDE-XL 5 MG TAB.ER.24 PO SCH (06:07)
[2020-12-19] MEDS: INSULIN SLIDING SCALE (NOVOLOG) 1 VIAL SQ SCH ×4 (06:07→23:20)
[2020-12-19 08:22] LABS: BASO % 0.1 % (0-2.0); EOS % 0.1 % (0-4.5); HEMATOCRIT 38.6 % (32.4-45.2); HEMOGLOBIN 13.3 GM/dL (10.7-15.3); LYMPH % 5.2 % (8-40); MCH 30.7 pg (25.7-33.7); MCHC 34.4 g/dl (32.0-36.0); MEAN CELL VOLUME 89.2 fl (80-96); MEAN PLT VOLUME 7.7 fl (7.5-11.1); MONO % 7.6 % (3.8-10.2); PLATELET COUNT 308 10^3/uL (134-434); RBC 4.33 M/mm3 (3.60-5.2); RDW 14.9 % (11.6-15.6); WHITE BLOOD COUNT 10.6 K/mm3 (4.0-10.0)
[2020-12-19 08:32] LABS: CALCIUM 8.2 mg/dL (8.5-10.1)
[2020-12-19 08:33] LABS: ALBUMIN 2.1 g/dl (3.4-5.0); BLOOD UREA NITROGEN 49.9 mg/dL (7-18)
[2020-12-19 08:34] LABS: MAGNESIUM 2.3 mg/dL (1.8-2.4)
[2020-12-19 08:36] LABS: TOT PROT 5.2 g/dl (6.4-8.2)
[2020-12-19 08:37] LABS: CREATININE 1.3 mg/dL (0.55-1.3)
[2020-12-19 08:39] LABS: BILIRUBIN,TOTAL 1.2 mg/dL (0.2-1)
[2020-12-19] MEDS ORDERED: PT OWN MED DRAWER 7, Y5N ONE (09:12)
[2020-12-19] MEDS: DEXAMETHASONE 4 MG TABLET (FP) PO SCH (09:36)
[2020-12-19] MEDS: LOSARTAN POTASSIUM 50 MG TABLET PO SCH (09:36)
[2020-12-19] MEDS: HYDROCHLOROTHIAZIDE 25 MG TABLET (FP) PO SCH (09:36)
[2020-12-19] MEDS: BARICITINIB 2 MG TABLET PO SCH (09:36)
[2020-12-19] MEDS: EZETIMIBE 10 MG TABLET (FP) PO SCH (09:36)
[2020-12-19] MEDS: BUDESONIDE/FORMETEROL FUMARATE 160/4.5 mcg INHALER IH SCH ×2 (09:36→23:07)
[2020-12-19] MEDS: APIXABAN 5 MG TABLET PO SCH ×2 (11:49→23:06)
[2020-12-19] MEDS: ROSUVASTATIN CA 20 MG TABLET (FP) PO SCH (23:06)
[2020-12-19] MEDS: INSULIN (LEVEMIR) 100 UNITS/ML UNITS SQ SCH (23:07)
[2020-12-20] MEDS: dilTIAZem HCL 60 MG TABLET PO SCH ×3 (00:05→12:38)
[2020-12-20] MEDS: glipiZIDE-XL 5 MG TAB.ER.24 PO SCH (06:43)
[2020-12-20] MEDS: INSULIN SLIDING SCALE (NOVOLOG) 1 VIAL SQ SCH ×4 (06:53→21:42)
[2020-12-20] MEDS ORDERED: INSULIN (LEVEMIR) 100 UNITS/ML UNITS SQ ONE (07:10)
[2020-12-20] MEDS ORDERED: INSULIN SLIDING SCALE (NOVOLOG) 1 VIAL SQ ONE (07:10)
[2020-12-20] MEDS ORDERED: PT OWN MED DRAWER 7, Y5N ONE (09:00)
[2020-12-20] MEDS: LOSARTAN POTASSIUM 50 MG TABLET PO SCH (09:03)
[2020-12-20] MEDS: EZETIMIBE 10 MG TABLET (FP) PO SCH (09:04)
[2020-12-20] MEDS: APIXABAN 5 MG TABLET PO SCH ×2 (09:04→21:42)
[2020-12-20] MEDS: HYDROCHLOROTHIAZIDE 25 MG TABLET (FP) PO SCH (09:04)
[2020-12-20] MEDS: BARICITINIB 2 MG TABLET PO SCH (09:05)
[2020-12-20] MEDS: BUDESONIDE/FORMETEROL FUMARATE 160/4.5 mcg INHALER IH SCH ×2 (09:05→21:43)
[2020-12-20] MEDS ORDERED: dilTIAZem HCL 30 MG TABLET PO SCH (12:45)
[2020-12-20] MEDS ORDERED: dilTIAZem HCL 60 MG TABLET PO SCH (12:45)
[2020-12-20] MEDS: dilTIAZem HCL 30 MG TABLET PO SCH ×2 (18:37→23:27)
[2020-12-20] MEDS: INSULIN (LEVEMIR) 100 UNITS/ML UNITS SQ SCH (21:42)
[2020-12-20] MEDS: ROSUVASTATIN CA 20 MG TABLET (FP) PO SCH (21:42)
[2020-12-21] MEDS: dilTIAZem HCL 30 MG TABLET PO SCH ×3 (05:41→18:03)
[2020-12-21] MEDS: INSULIN SLIDING SCALE (NOVOLOG) 1 VIAL SQ SCH ×4 (06:29→21:31)
[2020-12-21] MEDS: glipiZIDE-XL 5 MG TAB.ER.24 PO SCH (06:35)
[2020-12-21] MEDS ORDERED: PT OWN MED DRAWER 7, Y5N ONE (08:54)
[2020-12-21] MEDS: HYDROCHLOROTHIAZIDE 25 MG TABLET (FP) PO SCH (09:43)
[2020-12-21] MEDS: BARICITINIB 2 MG TABLET PO SCH (09:43)
[2020-12-21] MEDS: BUDESONIDE/FORMETEROL FUMARATE 160/4.5 mcg INHALER IH SCH ×2 (09:44→21:31)
[2020-12-21] MEDS: LOSARTAN POTASSIUM 50 MG TABLET PO SCH (09:44)
[2020-12-21] MEDS: APIXABAN 5 MG TABLET PO SCH ×2 (09:44→21:30)
[2020-12-21] MEDS: EZETIMIBE 10 MG TABLET (FP) PO SCH (09:44)
[2020-12-21] MEDS: ROSUVASTATIN CA 20 MG TABLET (FP) PO SCH (21:31)
[2020-12-21] MEDS: INSULIN (LEVEMIR) 100 UNITS/ML UNITS SQ SCH (21:31)
[2020-12-22] MEDS: dilTIAZem HCL 30 MG TABLET PO SCH ×4 (00:15→12:10)
[2020-12-22] MEDS: glipiZIDE-XL 5 MG TAB.ER.24 PO SCH (06:12)
[2020-12-22] MEDS: INSULIN SLIDING SCALE (NOVOLOG) 1 VIAL SQ SCH ×4 (06:12→21:41)
[2020-12-22 08:23] LABS: BASO % 0.2 % (0-2.0); EOS % 0.8 % (0-4.5); HEMATOCRIT 39.3 % (32.4-45.2); HEMOGLOBIN 13.3 GM/dL (10.7-15.3); LYMPH % 17.2 % (8-40); MCH 30.4 pg (25.7-33.7); MCHC 33.9 g/dl (32.0-36.0); MEAN CELL VOLUME 89.7 fl (80-96); MEAN PLT VOLUME 7.2 fl (7.5-11.1); MONO % 8.2 % (3.8-10.2); NEUT % 73.6 % (42.8-82.8); PLATELET COUNT 253 10^3/uL (134-434); RBC 4.38 M/mm3 (3.60-5.2); RDW 15.1 % (11.6-15.6); WHITE BLOOD COUNT 9.8 K/mm3 (4.0-10.0)
[2020-12-22 09:08] LABS: ALBUMIN 2.2 g/dl (3.4-5.0); BILIRUBIN,TOTAL 0.7 mg/dL (0.2-1); BLOOD UREA NITROGEN 43.3 mg/dL (7-18); CALCIUM 8.3 mg/dL (8.5-10.1); CREATININE 1.3 mg/dL (0.55-1.3); TOT PROT 5.1 g/dl (6.4-8.2)
[2020-12-22] MEDS: APIXABAN 5 MG TABLET PO SCH ×2 (09:45→21:24)
[2020-12-22] MEDS: LOSARTAN POTASSIUM 50 MG TABLET PO SCH (09:45)
[2020-12-22] MEDS: HYDROCHLOROTHIAZIDE 25 MG TABLET (FP) PO SCH (09:46)
[2020-12-22] MEDS: EZETIMIBE 10 MG TABLET (FP) PO SCH (09:47)
[2020-12-22] MEDS ORDERED: PT OWN MED DRAWER 7, Y5N ONE ×2 (09:48→21:22)
[2020-12-22] MEDS: BARICITINIB 2 MG TABLET PO SCH (09:48)
[2020-12-22] MEDS: BUDESONIDE/FORMETEROL FUMARATE 160/4.5 mcg INHALER IH SCH ×2 (10:01→21:25)
[2020-12-22] MEDS ORDERED: SODIUM CHLORIDE 250 ML IV STA (14:19)
[2020-12-22] MEDS ORDERED: DRONEDARONE HCL 400 MG TAB (FP) PO SCH ×2 (17:30→22:00)
[2020-12-22] MEDS: ROSUVASTATIN CA 20 MG TABLET (FP) PO SCH (21:24)
[2020-12-22] MEDS: INSULIN (LEVEMIR) 100 UNITS/ML UNITS SQ SCH (21:24)
[2020-12-22] MEDS: DRONEDARONE HCL 400 MG TAB (FP) PO SCH (21:25)
[2020-12-23] MEDS: glipiZIDE-XL 5 MG TAB.ER.24 PO SCH (06:12)
[2020-12-23] MEDS: INSULIN SLIDING SCALE (NOVOLOG) 1 VIAL SQ SCH ×4 (06:12→22:12)
[2020-12-23] MEDS ORDERED: PT OWN MED DRAWER 7, Y5N ONE ×2 (09:05→22:26)
[2020-12-23] MEDS: APIXABAN 5 MG TABLET PO SCH ×2 (09:11→21:18)
[2020-12-23] MEDS: DRONEDARONE HCL 400 MG TAB (FP) PO SCH ×3 (09:11→22:38)
[2020-12-23] MEDS: BARICITINIB 2 MG TABLET PO SCH (09:11)
[2020-12-23] MEDS: EZETIMIBE 10 MG TABLET (FP) PO SCH (09:12)
[2020-12-23] MEDS: BUDESONIDE/FORMETEROL FUMARATE 160/4.5 mcg INHALER IH SCH ×2 (09:12→21:19)
[2020-12-23] MEDS: LOSARTAN POTASSIUM 50 MG TABLET PO SCH (11:19)
[2020-12-23] MEDS: HYDROCHLOROTHIAZIDE 25 MG TABLET (FP) PO SCH (12:18)
[2020-12-23] MEDS: ROSUVASTATIN CA 20 MG TABLET (FP) PO SCH (21:18)
[2020-12-23] MEDS: INSULIN (LEVEMIR) 100 UNITS/ML UNITS SQ SCH (22:11)
[2020-12-24] MEDS: glipiZIDE-XL 5 MG TAB.ER.24 PO SCH (06:48)
[2020-12-24] MEDS: INSULIN SLIDING SCALE (NOVOLOG) 1 VIAL SQ SCH ×4 (06:49→22:22)
[2020-12-24 07:19] LABS: BASO % 0.1 % (0-2.0); EOS % 1.3 % (0-4.5); HEMATOCRIT 35.7 % (32.4-45.2); HEMOGLOBIN 12.1 GM/dL (10.7-15.3); LYMPH % 19.4 % (8-40); MCH 30.1 pg (25.7-33.7); MCHC 33.9 g/dl (32.0-36.0); MEAN CELL VOLUME 88.7 fl (80-96); MEAN PLT VOLUME 7.1 fl (7.5-11.1); MONO % 8.1 % (3.8-10.2); NEUT % 71.1 % (42.8-82.8); PLATELET COUNT 231 10^3/uL (134-434); RBC 4.03 M/mm3 (3.60-5.2); WHITE BLOOD COUNT 7.1 K/mm3 (4.0-10.0)
[2020-12-24 07:50] LABS: BLOOD UREA NITROGEN 32.2 mg/dL (7-18); CALCIUM 7.9 mg/dL (8.5-10.1)
[2020-12-24 07:54] LABS: CREATININE 1.2 mg/dL (0.55-1.3)
[2020-12-24 07:55] LABS: BILIRUBIN,TOTAL 0.8 mg/dL (0.2-1); TOT PROT 4.9 g/dl (6.4-8.2)
[2020-12-24] MEDS ORDERED: PT OWN MED DRAWER 7, Y5N ONE ×3 (09:49→21:50)
[2020-12-24] MEDS: LOSARTAN POTASSIUM 50 MG TABLET PO SCH (10:08)
[2020-12-24] MEDS: HYDROCHLOROTHIAZIDE 25 MG TABLET (FP) PO SCH (10:09)
[2020-12-24] MEDS: APIXABAN 5 MG TABLET PO SCH ×2 (10:09→22:05)
[2020-12-24] MEDS: DRONEDARONE HCL 400 MG TAB (FP) PO SCH ×3 (10:10→22:06)
[2020-12-24] MEDS: BARICITINIB 2 MG TABLET PO SCH (10:10)
[2020-12-24] MEDS: BUDESONIDE/FORMETEROL FUMARATE 160/4.5 mcg INHALER IH SCH ×2 (10:10→22:06)
[2020-12-24] MEDS: EZETIMIBE 10 MG TABLET (FP) PO SCH (10:11)
[2020-12-24] MEDS: ROSUVASTATIN CA 20 MG TABLET (FP) PO SCH (22:05)
[2020-12-24] MEDS: INSULIN (LEVEMIR) 100 UNITS/ML UNITS SQ SCH (22:07)
[2020-12-25] MEDS: glipiZIDE-XL 5 MG TAB.ER.24 PO SCH (06:25)
[2020-12-25] MEDS: INSULIN SLIDING SCALE (NOVOLOG) 1 VIAL SQ SCH ×4 (06:29→21:38)
[2020-12-25] MEDS ORDERED: PT OWN MED DRAWER 7, Y5N ONE ×2 (09:01→21:21)
[2020-12-25] MEDS: LOSARTAN POTASSIUM 50 MG TABLET PO SCH (09:13)
[2020-12-25] MEDS: BARICITINIB 2 MG TABLET PO SCH (09:13)
[2020-12-25] MEDS: DRONEDARONE HCL 400 MG TAB (FP) PO SCH ×2 (09:13→22:33)
[2020-12-25] MEDS: APIXABAN 5 MG TABLET PO SCH ×2 (09:13→21:38)
[2020-12-25] MEDS: EZETIMIBE 10 MG TABLET (FP) PO SCH (09:14)
[2020-12-25] MEDS: HYDROCHLOROTHIAZIDE 25 MG TABLET (FP) PO SCH (09:14)
[2020-12-25] MEDS: BUDESONIDE/FORMETEROL FUMARATE 160/4.5 mcg INHALER IH SCH ×2 (09:14→21:39)
[2020-12-25] MEDS: INSULIN (LEVEMIR) 100 UNITS/ML UNITS SQ SCH (21:38)
[2020-12-25] MEDS: ROSUVASTATIN CA 20 MG TABLET (FP) PO SCH (21:38)
[2020-12-26] MEDS: glipiZIDE-XL 5 MG TAB.ER.24 PO SCH (06:37)
[2020-12-26] MEDS: INSULIN SLIDING SCALE (NOVOLOG) 1 VIAL SQ SCH ×4 (06:56→22:05)
[2020-12-26] MEDS ORDERED: PT OWN MED DRAWER 7, Y5N ONE (09:29)
[2020-12-26] MEDS: DRONEDARONE HCL 400 MG TAB (FP) PO SCH ×2 (09:34→22:04)
[2020-12-26] MEDS: APIXABAN 5 MG TABLET PO SCH ×2 (09:35→22:04)
[2020-12-26] MEDS: LOSARTAN POTASSIUM 50 MG TABLET PO SCH (09:35)
[2020-12-26] MEDS: BARICITINIB 2 MG TABLET PO SCH (09:36)
[2020-12-26] MEDS: HYDROCHLOROTHIAZIDE 25 MG TABLET (FP) PO SCH (09:38)
[2020-12-26] MEDS: EZETIMIBE 10 MG TABLET (FP) PO SCH (09:38)
[2020-12-26] MEDS: BUDESONIDE/FORMETEROL FUMARATE 160/4.5 mcg INHALER IH SCH ×2 (09:39→22:05)
[2020-12-26] MEDS: ROSUVASTATIN CA 20 MG TABLET (FP) PO SCH (22:04)
[2020-12-26] MEDS: INSULIN (LEVEMIR) 100 UNITS/ML UNITS SQ SCH (22:05)
[2020-12-27] MEDS: INSULIN SLIDING SCALE (NOVOLOG) 1 VIAL SQ SCH ×2 (06:06→11:17)
[2020-12-27] MEDS: glipiZIDE-XL 5 MG TAB.ER.24 PO SCH (06:06)
[2020-12-27] MEDS ORDERED: PT OWN MED DRAWER 7, Y5N ONE (10:57)
[2020-12-27 11:10] VITALS: BP 115/57; PULSE 65; TEMP 98.5
[2020-12-27] MEDS: HYDROCHLOROTHIAZIDE 25 MG TABLET (FP) PO SCH (11:10)
[2020-12-27] MEDS: LOSARTAN POTASSIUM 50 MG TABLET PO SCH (11:10)
[2020-12-27] MEDS: DRONEDARONE HCL 400 MG TAB (FP) PO SCH (11:10)
[2020-12-27] MEDS: BUDESONIDE/FORMETEROL FUMARATE 160/4.5 mcg INHALER IH SCH (11:11)
[2020-12-27] MEDS: APIXABAN 5 MG TABLET PO SCH (11:11)
[2020-12-27] MEDS: BARICITINIB 2 MG TABLET PO SCH (11:11)
[2020-12-27] MEDS: EZETIMIBE 10 MG TABLET (FP) PO SCH (11:11)
== END 2020-12-27 14:00 | DRG 177 ==
LOC: JER 15:42 → JERBED 16:14 → J4S 21:26
PROVIDERS: ADMIT Internal Medicine; ATTEND Internal Medicine
PROC: XW033E5 Introduction of Remdesivir Anti-infective into Peripheral Vein, Percutaneous Approach, New Technology Group 5 (ICD-10-PCS; principal; 2020-12-08)
DX: U07.1 COVID-19 (principal); J12.82 Pneumonia due to coronavirus disease 2019; I50.33 Acute on chronic diastolic (congestive) heart failure; J96.01 Acute respiratory failure with hypoxia; N17.9 Acute kidney failure, unspecified; I13.0 Hypertensive heart and chronic kidney disease with heart failure and stage 1 through stage 4 chronic kidney disease, or unspecified chronic kidney disease; I77.1 Stricture of artery; E66.01 Morbid (severe) obesity due to excess calories; I25.10 Atherosclerotic heart disease of native coronary artery without angina pectoris; E78.00 Pure hypercholesterolemia, unspecified; E78.5 Hyperlipidemia, unspecified; I25.119 Atherosclerotic heart disease of native coronary artery with unspecified angina pectoris; I48.0 Paroxysmal atrial fibrillation; E11.9 Type 2 diabetes mellitus without complications; E87.6 Hypokalemia; I95.9 Hypotension, unspecified; N18.9 Chronic kidney disease, unspecified; Z68.32 Body mass index [BMI] 32.0-32.9, adult; R00.1 Bradycardia, unspecified
CPT/HCPCS: 36415; 71045-TC-FY; 76705-TC; 80053; 81003; 82550; 82553; 82728; 82962; 83615; 83735; 83880; 84100; 84439; 84443; 84484; 85025; 85379; 85610; 85730; 86140; 86480; 86704; 86706; 86803; 87086; 87340; 87517; 87804; 87899; 93005; 93010; 93306-TC; 94010; 97116-GP; 97161-GP; 99284-25; 99291; C9399; C9803; M0243; Q0240; Q0243; U0003; U0005

== ENCOUNTER 2022-03-07 14:54 | Observation (INO) | payer OTHER ==
[2022-03-07 15:59] VITALS: BMI 35.5
[2022-03-07] MEDS ORDERED: ASPIRIN 81 MG CHEWABLE TABLETS PO ONE (17:18)
[2022-03-07] MEDS ORDERED: ASPIRIN 81 MG CHEWABLE TABLETS ONE (17:24)
[2022-03-07 17:52] LABS: BASO % 0.6 % (0-2.0); HEMATOCRIT 36.2 % (32.4-45.2); LYMPH % 29.4 % (8-40); MCH 29.9 pg (25.7-33.7); MCHC 33.1 g/dl (32.0-36.0); MEAN CELL VOLUME 90.4 fl (80-96); MEAN PLT VOLUME 6.5 fl (7.5-11.1); MONO % 12.1 % (3.8-10.2); NEUT % 55.9 % (42.8-82.8); PLATELET COUNT 231 10^3/uL (134-434); RDW 15.4 % (11.6-15.6); WHITE BLOOD COUNT 6.6 K/mm3 (4.0-10.0)
[2022-03-07 18:21] LABS: CALCIUM 9.5 mg/dL (8.5-10.1)
[2022-03-07 18:22] LABS: ALBUMIN 3.3 g/dl (3.4-5.0); BLOOD UREA NITROGEN 27.1 mg/dL (7-18)
[2022-03-07 18:25] LABS: CREATININE 1.5 mg/dL (0.55-1.3)
[2022-03-07 18:26] LABS: BILIRUBIN,TOTAL 0.4 mg/dL (0.2-1); TOT PROT 6.1 g/dl (6.4-8.2)
[2022-03-07] MEDS ORDERED: SODIUM CHLORIDE 1,000 ML IV STA (18:29)
[2022-03-07 20:06] LABS: EPI CELLS 4 /uL (0-25.1); HYALINE CASTS 0 /uL (0-3.1); PH,URINE 6.5 (5.0-8.0); URINE APPEARANCE CLEAR; URINE BACTERIA 19 /uL (0-1359); URINE BILIRUBIN NEGATIVE (NEGATIVE); URINE COLOR YELLOW; URINE GLUCOSE (UA) NEGATIVE (NEGATIVE); URINE KETONE NEGATIVE (NEGATIVE); URINE LEUK ESTERASE TRACE (NEGATIVE); URINE NITRITE NEGATIVE (NEGATIVE); URINE PROTEIN NEGATIVE (NEGATIVE); URINE RBC 3 /uL (0-23.9); URINE UROBILINOGEN 0.2 mg/dL (0.2-1.0); URINE WBC 9 /uL (0-25.8)
[2022-03-07] MEDS ORDERED: ALBUTEROL SO4 HFA INHALER IH PRN (20:30)
[2022-03-07] MEDS ORDERED: ACETAMINOPHEN 325 MG TABLET (FP) PO PRN (20:30)
[2022-03-07] MEDS ORDERED: BUDESONIDE/FORMETEROL FUMARATE 160/4.5 mcg INHALER IH SCH (22:00)
[2022-03-07] MEDS ORDERED: APIXABAN 5 MG TABLET PO SCH (22:00)
[2022-03-07] MEDS ORDERED: ROSUVASTATIN CA 20 MG TABLET PO SCH (22:00)
[2022-03-07] MEDS ORDERED: INSULIN SLIDING SCALE (NOVOLOG) 1 VIAL SQ SCH (22:00)
[2022-03-07] MEDS ORDERED: INSULIN (LEVEMIR) 100 UNITS/ML UNITS SQ SCH (22:00)
[2022-03-08] MEDS: INSULIN SLIDING SCALE (NOVOLOG) 1 VIAL SQ SCH ×3 (02:00→12:22)
[2022-03-08] MEDS: APIXABAN 5 MG TABLET PO SCH ×2 (02:00→12:08)
[2022-03-08] MEDS ORDERED: ROSUVASTATIN CA 20 MG TABLET ONE (05:13)
[2022-03-08] MEDS ORDERED: APIXABAN 5 MG TABLET ONE ×2 (05:13→12:14)
[2022-03-08] MEDS ORDERED: glipiZIDE-XL 2.5 MG TAB.ER.24 PO SCH (07:00)
[2022-03-08] MEDS ORDERED: DRONEDARONE HCL 400 MG TAB (FP) PO SCH (08:00)
[2022-03-08 08:02] LABS: BASO % 0.6 % (0-2.0); EOS % 1.5 % (0-4.5); HEMATOCRIT 35.2 % (32.4-45.2); HEMOGLOBIN 11.8 GM/dL (10.7-15.3); LYMPH % 24.3 % (8-40); MCH 30.1 pg (25.7-33.7); MCHC 33.5 g/dl (32.0-36.0); MEAN CELL VOLUME 89.9 fl (80-96); MEAN PLT VOLUME 6.8 fl (7.5-11.1); MONO % 10.9 % (3.8-10.2); NEUT % 62.7 % (42.8-82.8); PLATELET COUNT 242 10^3/uL (134-434); RBC 3.92 M/mm3 (3.60-5.2); RDW 15.2 % (11.6-15.6); WHITE BLOOD COUNT 5.4 K/mm3 (4.0-10.0)
[2022-03-08 08:31] LABS: ALBUMIN 3.1 g/dl (3.4-5.0)
[2022-03-08 08:32] LABS: BLOOD UREA NITROGEN 22.6 mg/dL (7-18)
[2022-03-08 08:33] LABS: BILIRUBIN,TOTAL 0.5 mg/dL (0.2-1); TOT PROT 5.8 g/dl (6.4-8.2)
[2022-03-08 08:35] LABS: CREATININE 1.3 mg/dL (0.55-1.3)
[2022-03-08] MEDS ORDERED: HYDROCHLOROTHIAZIDE 25 MG TABLET (FP) PO SCH (10:00)
[2022-03-08] MEDS ORDERED: PATIENT'S OWN MEDICATION (NON-FORMULARY) (Losartan/Hydrochlorothiazide [Losartan-Hctz 100- PO SCH (10:00)
[2022-03-08] MEDS ORDERED: EZETIMIBE 10 MG TABLET (FP) PO SCH (10:00)
[2022-03-08] MEDS ORDERED: LOSARTAN POTASSIUM 50 MG TABLET PO SCH (10:00)
[2022-03-08] MEDS ORDERED: LOSARTAN POTASSIUM 50 MG TABLET ONE (12:14)
[2022-03-08] MEDS ORDERED: glipiZIDE 5 MG TABLET (FP) ONE ×2 (12:14)
[2022-03-08] MEDS ORDERED: HYDROCHLOROTHIAZIDE 25 MG TABLET (FP) ONE (12:14)
[2022-03-08 13:49] LABS: N-TERMINAL BNP 477.6 pg/ml (5-450)
[2022-03-08 17:19] VITALS: BP 135/89; PULSE 67; RESP 22; TEMP 98.2
== END 2022-03-08 17:24 | disposition home or self-care (01) ==
LOC: JER 14:54 → JERBED 18:39
PROVIDERS: ADMIT Internal Medicine; ATTEND Internal Medicine
PROC: 3E0337Z Introduction of Electrolytic and Water Balance Substance into Peripheral Vein, Percutaneous Approach (ICD-10-PCS; principal; 2022-03-07)
DX: R53.1 Weakness (principal); R42 Dizziness and giddiness; I48.91 Unspecified atrial fibrillation; I25.10 Atherosclerotic heart disease of native coronary artery without angina pectoris; I11.9 Hypertensive heart disease without heart failure; E66.8 Other obesity; Z68.35 Body mass index [BMI] 35.0-35.9, adult
CPT/HCPCS: 0241U-QW; 36415; 71045-TC-FY; 80053; 81003; 82550; 82553; 82962; 83880; 84443; 84484; 85025; 93005; 93010; 96360; 99285-25; G0378

== ENCOUNTER 2022-04-26 12:19 | Inpatient (IN) | payer OTHER ==
[2022-04-26] MEDS ORDERED: VANCOMYCIN 1 GM in D5W (PRE-DOCKED) 1,000 MG/250 ML IVPB ONE (14:00)
[2022-04-26] MEDS ORDERED: PIPERACILLIN/TAZOB 4.5 GM 4.5 GM in DEXTROSE 5%-WATER 100 ML IVPB ONE (14:00)
[2022-04-26] MEDS ORDERED: ACETAMINOPHEN 500 MG TABLET (FP) PO ONE (14:08)
[2022-04-26] MEDS ORDERED: PIPERACILLIN/TAZOB 4.5 GM 4.5 GM/100 ML BAG IVPB ONE (14:49)
[2022-04-26] MEDS ORDERED: VANCOMYCIN/WATER FOR INJ (PEG) 1,000 MG/200 ML BAG IVPB ONE (14:49)
[2022-04-26] MEDS ORDERED: ACETAMINOPHEN 325 MG TABLET (FP) ONE (14:49)
[2022-04-26 15:04] LABS: BASO % 0.4 % (0-2.0); EOS % 0.9 % (0-4.5); HEMATOCRIT 38.2 % (32.4-45.2); HEMOGLOBIN 12.4 GM/dL (10.7-15.3); LYMPH % 14.4 % (8-40); MCH 29.3 pg (25.7-33.7); MCHC 32.6 g/dl (32.0-36.0); MEAN CELL VOLUME 90.1 fl (80-96); MEAN PLT VOLUME 7.4 fl (7.5-11.1); MONO % 11.8 % (3.8-10.2); NEUT % 72.5 % (42.8-82.8); PLATELET COUNT 279 10^3/uL (134-434); RBC 4.24 M/mm3 (3.60-5.2); RDW 15.8 % (11.6-15.6); WHITE BLOOD COUNT 8.8 K/mm3 (4.0-10.0)
[2022-04-26 15:11] LABS: INR 1.52 (0.83-1.09); PROTHROMBIN TIME (PATIENT) 17.6 SEC (9.7-13.0)
[2022-04-26 15:14] LABS: ACTIVATED PTT 35.9 SECONDS (25.2-36.5)
[2022-04-26 15:24] LABS: ALBUMIN 3.5 g/dl (3.4-5.0); BLOOD UREA NITROGEN 17.3 mg/dL (7-18); CALCIUM 9.4 mg/dL (8.5-10.1)
[2022-04-26 15:27] LABS: CREATININE 1.3 mg/dL (0.55-1.3)
[2022-04-26 15:29] LABS: BILIRUBIN,TOTAL 1.1 mg/dL (0.2-1); TOT PROT 7.3 g/dl (6.4-8.2)
[2022-04-26] MEDS ORDERED: ACETAMINOPHEN 325 MG TABLET (FP) PO PRN (16:49)
[2022-04-26] MEDS ORDERED: ALBUTEROL SO4 HFA INHALER IH PRN (16:49)
[2022-04-26] MEDS ORDERED: POLYETHYLENE GLYCOL (HEALTHYLAX) 3350 17 GM PACKET PO PRN (16:50)
[2022-04-26 18:44] LABS: ALBUMIN 3.1 g/dl (3.4-5.0)
[2022-04-26 18:47] LABS: CREATININE 1.2 mg/dL (0.55-1.3)
[2022-04-26 18:49] LABS: BILIRUBIN,TOTAL 0.8 mg/dL (0.2-1); TOT PROT 5.8 g/dl (6.4-8.2)
[2022-04-26 21:15] VITALS: BMI 35.2
[2022-04-26] MEDS ORDERED: INSULIN (LEVEMIR) 100 UNITS/ML UNITS SQ SCH (22:00)
[2022-04-26] MEDS: INSULIN (NOVOLOG) ASPART 100 UNITS/ML 10ML VIAL SQ SCH (23:01)
[2022-04-26] MEDS: APIXABAN 5 MG TABLET PO SCH (23:03)
[2022-04-26] MEDS: BUDESONIDE/FORMETEROL FUMARATE 160/4.5 mcg INHALER IH SCH (23:04)
[2022-04-26] MEDS: DRONEDARONE HCL 400 MG TAB (FP) PO SCH ×2 (23:10→23:14)
[2022-04-27] MEDS ORDERED: glipiZIDE-XL 2.5 MG TAB.ER.24 PO SCH (07:00)
[2022-04-27] MEDS: INSULIN (NOVOLOG) ASPART 100 UNITS/ML 10ML VIAL SQ SCH ×2 (07:03→11:29)
[2022-04-27] MEDS ORDERED: EZETIMIBE 10 MG TABLET (FP) PO SCH (10:00)
[2022-04-27] MEDS ORDERED: ROSUVASTATIN CA 40 MG TABLET PO SCH (10:00)
[2022-04-27] MEDS ORDERED: PATIENT'S OWN MEDICATION (NON-FORMULARY) (Losartan/Hydrochlorothiazide [Losartan-Hctz 100- PO SCH (10:00)
[2022-04-27 11:38] LABS: BASO % 0.4 % (0-2.0); EOS % 1.3 % (0-4.5); HEMATOCRIT 35.2 % (32.4-45.2); HEMOGLOBIN 11.7 GM/dL (10.7-15.3); LYMPH % 20.3 % (8-40); MCH 29.8 pg (25.7-33.7); MCHC 33.1 g/dl (32.0-36.0); MEAN CELL VOLUME 89.9 fl (80-96); MONO % 11.6 % (3.8-10.2); NEUT % 66.4 % (42.8-82.8); PLATELET COUNT 259 10^3/uL (134-434); RBC 3.92 M/mm3 (3.60-5.2); RDW 15.3 % (11.6-15.6); WHITE BLOOD COUNT 6.6 K/mm3 (4.0-10.0)
[2022-04-27] MEDS ORDERED: VANCOMYCIN 1 GM/200 ML PREMIX BAG (RESTRICTED TO ID ONLY) IVPB ONE (12:00)
[2022-04-27 12:11] LABS: ALBUMIN 3.4 g/dl (3.4-5.0); BLOOD UREA NITROGEN 16.6 mg/dL (7-18); CALCIUM 9.1 mg/dL (8.5-10.1)
[2022-04-27] MEDS: APIXABAN 5 MG TABLET PO SCH ×2 (12:13→22:04)
[2022-04-27] MEDS: DRONEDARONE HCL 400 MG TAB (FP) PO SCH ×2 (12:13→22:04)
[2022-04-27 12:14] LABS: CREATININE 1.2 mg/dL (0.55-1.3)
[2022-04-27] MEDS: BUDESONIDE/FORMETEROL FUMARATE 160/4.5 mcg INHALER IH SCH ×2 (12:14→22:07)
[2022-04-27 12:15] LABS: BILIRUBIN,TOTAL 0.8 mg/dL (0.2-1)
[2022-04-27] MEDS ORDERED: PIPERACILLIN/TAZOB 3.375 GM 3.375 GM in DEXTROSE 5%-WATER - 50 ML IVPB SCH ×2 (12:15→18:00)
[2022-04-27] MEDS ORDERED: HYDROCHLOROTHIAZIDE 25 MG TABLET (FP) PO SCH (12:15)
[2022-04-27 12:16] LABS: TOT PROT 6.3 g/dl (6.4-8.2)
[2022-04-27] MEDS ORDERED: PROPOFOL 20 ML ONE (14:22)
[2022-04-27] MEDS ORDERED: LIDOCAINE HCL 1%, 10 MG/ML (20ML VIAL) ONE (14:37)
[2022-04-27] MEDS ORDERED: LIDOCAINE HCL 1%, 10 MG/ML (20ML VIAL) NR ONE (14:42)
[2022-04-27] MEDS ORDERED: ALBUTEROL SO4 HFA INHALER IH PRN (15:59)
[2022-04-27] MEDS ORDERED: POLYETHYLENE GLYCOL (HEALTHYLAX) 3350 17 GM PACKET PO PRN (15:59)
[2022-04-27] MEDS ORDERED: oxyCODONE HCL 5 MG TABLET PO PRN (16:03)
[2022-04-27] MEDS: INSULIN SLIDING SCALE (NOVOLOG) 1 VIAL SQ SCH ×2 (16:40→22:05)
[2022-04-27] MEDS: INSULIN (LEVEMIR) 100 UNITS/ML UNITS SQ SCH (22:04)
[2022-04-27] MEDS: PIPERACILLIN/TAZOB 3.375 GM 3.375 GM in DEXTROSE 5%-WATER - 50 ML IVPB SCH ×3 (23:02→23:03)
[2022-04-28] MEDS: VANCOMYCIN/WATER FOR INJ (PEG) 1,000 MG/200 ML BAG IVPB SCH ×2 (02:25→17:08)
[2022-04-28] MEDS: INSULIN SLIDING SCALE (NOVOLOG) 1 VIAL SQ SCH ×4 (06:26→21:16)
[2022-04-28] MEDS: glipiZIDE-XL 2.5 MG TAB.ER.24 PO SCH (06:28)
[2022-04-28] MEDS: PIPERACILLIN/TAZOB 3.375 GM 3.375 GM in DEXTROSE 5%-WATER - 50 ML IVPB SCH ×3 (08:34→23:36)
[2022-04-28] MEDS: DRONEDARONE HCL 400 MG TAB (FP) PO SCH ×2 (09:13→21:15)
[2022-04-28] MEDS: APIXABAN 5 MG TABLET PO SCH ×2 (09:13→21:15)
[2022-04-28] MEDS: HYDROCHLOROTHIAZIDE 25 MG TABLET (FP) PO SCH (09:13)
[2022-04-28] MEDS: EZETIMIBE 10 MG TABLET (FP) PO SCH (09:13)
[2022-04-28] MEDS: BUDESONIDE/FORMETEROL FUMARATE 160/4.5 mcg INHALER IH SCH ×2 (09:15→21:18)
[2022-04-28 09:27] LABS: BASO % 0.3 % (0-2.0); EOS % 1.8 % (0-4.5); HEMATOCRIT 34.6 % (32.4-45.2); HEMOGLOBIN 11.4 GM/dL (10.7-15.3); LYMPH % 13.4 % (8-40); MCH 29.4 pg (25.7-33.7); MCHC 32.9 g/dl (32.0-36.0); MEAN CELL VOLUME 89.2 fl (80-96); MEAN PLT VOLUME 6.6 fl (7.5-11.1); MONO % 11.4 % (3.8-10.2); NEUT % 73.1 % (42.8-82.8); PLATELET COUNT 244 10^3/uL (134-434); RBC 3.88 M/mm3 (3.60-5.2); RDW 15.5 % (11.6-15.6); WHITE BLOOD COUNT 7.4 K/mm3 (4.0-10.0)
[2022-04-28 09:55] LABS: CALCIUM 8.7 mg/dL (8.5-10.1)
[2022-04-28 09:56] LABS: ALBUMIN 2.9 g/dl (3.4-5.0); BLOOD UREA NITROGEN 17.8 mg/dL (7-18)
[2022-04-28 09:58] LABS: CREATININE 1.3 mg/dL (0.55-1.3)
[2022-04-28 10:00] LABS: TOT PROT 5.8 g/dl (6.4-8.2)
[2022-04-28 10:02] LABS: BILIRUBIN,TOTAL 0.8 mg/dL (0.2-1)
[2022-04-28] MEDS: LOSARTAN POTASSIUM 50 MG TABLET PO SCH (11:40)
[2022-04-28] MEDS ORDERED: LOSARTAN POTASSIUM 50 MG TABLET PO SCH (12:15)
[2022-04-28] MEDS: ROSUVASTATIN CA 20 MG TABLET PO SCH (21:15)
[2022-04-28] MEDS: INSULIN (LEVEMIR) 100 UNITS/ML UNITS SQ SCH (21:16)
[2022-04-29] MEDS: VANCOMYCIN/WATER FOR INJ (PEG) 1,000 MG/200 ML BAG IVPB SCH ×2 (03:35→15:12)
[2022-04-29] MEDS: INSULIN SLIDING SCALE (NOVOLOG) 1 VIAL SQ SCH ×4 (06:51→22:35)
[2022-04-29] MEDS: glipiZIDE-XL 2.5 MG TAB.ER.24 PO SCH (07:19)
[2022-04-29] MEDS: PIPERACILLIN/TAZOB 3.375 GM 3.375 GM in DEXTROSE 5%-WATER - 50 ML IVPB SCH (08:14)
[2022-04-29] MEDS: APIXABAN 5 MG TABLET PO SCH ×2 (09:08→22:29)
[2022-04-29] MEDS: ACETAMINOPHEN 325 MG TABLET (FP) PO PRN (09:08)
[2022-04-29] MEDS: LOSARTAN POTASSIUM 50 MG TABLET PO SCH (09:08)
[2022-04-29] MEDS: DRONEDARONE HCL 400 MG TAB (FP) PO SCH ×2 (09:08→22:29)
[2022-04-29] MEDS: HYDROCHLOROTHIAZIDE 25 MG TABLET (FP) PO SCH (09:08)
[2022-04-29] MEDS: EZETIMIBE 10 MG TABLET (FP) PO SCH (09:08)
[2022-04-29] MEDS: BUDESONIDE/FORMETEROL FUMARATE 160/4.5 mcg INHALER IH SCH ×3 (09:19→22:31)
[2022-04-29] MEDS: ROSUVASTATIN CA 20 MG TABLET PO SCH (22:29)
[2022-04-29] MEDS: INSULIN (LEVEMIR) 100 UNITS/ML UNITS SQ SCH (22:36)
[2022-04-30] MEDS: VANCOMYCIN/WATER FOR INJ (PEG) 1,000 MG/200 ML BAG IVPB SCH ×2 (02:21→14:33)
[2022-04-30] MEDS: INSULIN SLIDING SCALE (NOVOLOG) 1 VIAL SQ SCH ×2 (06:07→11:47)
[2022-04-30] MEDS: glipiZIDE-XL 2.5 MG TAB.ER.24 PO SCH (06:27)
[2022-04-30 09:13] LABS: BASO % 0.8 % (0-2.0); EOS % 3.2 % (0-4.5); HEMATOCRIT 36.5 % (32.4-45.2); HEMOGLOBIN 12.2 GM/dL (10.7-15.3); LYMPH % 22.2 % (8-40); MCH 29.8 pg (25.7-33.7); MCHC 33.5 g/dl (32.0-36.0); MEAN CELL VOLUME 89.1 fl (80-96); MEAN PLT VOLUME 6.9 fl (7.5-11.1); MONO % 10.1 % (3.8-10.2); NEUT % 63.7 % (42.8-82.8); PLATELET COUNT 296 10^3/uL (134-434); RDW 15.5 % (11.6-15.6); WHITE BLOOD COUNT 6.8 K/mm3 (4.0-10.0)
[2022-04-30 09:50] LABS: ALBUMIN 3.3 g/dl (3.4-5.0); BLOOD UREA NITROGEN 17.7 mg/dL (7-18)
[2022-04-30 09:53] LABS: CREATININE 1.3 mg/dL (0.55-1.3)
[2022-04-30 09:55] LABS: BILIRUBIN,TOTAL 0.8 mg/dL (0.2-1)
[2022-04-30 09:58] LABS: TOT PROT 6.6 g/dl (6.4-8.2)
[2022-04-30] MEDS: EZETIMIBE 10 MG TABLET (FP) PO SCH (11:31)
[2022-04-30] MEDS: HYDROCHLOROTHIAZIDE 25 MG TABLET (FP) PO SCH (11:31)
[2022-04-30] MEDS: APIXABAN 5 MG TABLET PO SCH ×2 (11:31→22:06)
[2022-04-30] MEDS: LOSARTAN POTASSIUM 50 MG TABLET PO SCH (11:31)
[2022-04-30] MEDS: BUDESONIDE/FORMETEROL FUMARATE 160/4.5 mcg INHALER IH SCH ×2 (11:32→22:11)
[2022-04-30] MEDS: DRONEDARONE HCL 400 MG TAB (FP) PO SCH ×2 (11:32→22:06)
[2022-04-30] MEDS ORDERED: INSULIN (LEVEMIR) 100 UNITS/ML UNITS SQ ONE (18:22)
[2022-04-30] MEDS ORDERED: INSULIN (NOVOLOG) ASPART 100 UNITS/ML 10ML VIAL ONE (22:00)
[2022-04-30] MEDS: ROSUVASTATIN CA 20 MG TABLET PO SCH (22:05)
[2022-04-30] MEDS: INSULIN (LEVEMIR) 100 UNITS/ML UNITS SQ SCH (22:07)
[2022-04-30] MEDS: ACETAMINOPHEN 325 MG TABLET (FP) PO PRN (22:07)
[2022-05-01] MEDS: VANCOMYCIN/WATER FOR INJ (PEG) 1,000 MG/200 ML BAG IVPB SCH ×2 (03:29→15:11)
[2022-05-01] MEDS: INSULIN SLIDING SCALE (NOVOLOG) 1 VIAL SQ SCH ×6 (03:29→22:18)
[2022-05-01] MEDS: glipiZIDE-XL 2.5 MG TAB.ER.24 PO SCH (06:20)
[2022-05-01] MEDS ORDERED: INSULIN (NOVOLOG) ASPART 100 UNITS/ML 10ML VIAL ONE (06:24)
[2022-05-01] MEDS: DRONEDARONE HCL 400 MG TAB (FP) PO SCH ×2 (09:13→21:32)
[2022-05-01] MEDS: HYDROCHLOROTHIAZIDE 25 MG TABLET (FP) PO SCH (09:14)
[2022-05-01] MEDS: LOSARTAN POTASSIUM 50 MG TABLET PO SCH (09:14)
[2022-05-01] MEDS: EZETIMIBE 10 MG TABLET (FP) PO SCH (09:14)
[2022-05-01] MEDS: BUDESONIDE/FORMETEROL FUMARATE 160/4.5 mcg INHALER IH SCH ×2 (09:15→21:36)
[2022-05-01] MEDS: APIXABAN 5 MG TABLET PO SCH ×2 (09:15→21:32)
[2022-05-01] MEDS: ROSUVASTATIN CA 20 MG TABLET PO SCH (21:32)
[2022-05-01] MEDS: INSULIN (LEVEMIR) 100 UNITS/ML UNITS SQ SCH ×2 (21:32→22:25)
[2022-05-02 02:41] VITALS: PULSE 53
[2022-05-02] MEDS: VANCOMYCIN/WATER FOR INJ (PEG) 1,000 MG/200 ML BAG IVPB SCH ×2 (02:59→15:17)
[2022-05-02] MEDS: glipiZIDE-XL 2.5 MG TAB.ER.24 PO SCH (06:09)
[2022-05-02] MEDS: INSULIN SLIDING SCALE (NOVOLOG) 1 VIAL SQ SCH (06:10)
[2022-05-02] MEDS: ACETAMINOPHEN 325 MG TABLET (FP) PO PRN (07:10)
[2022-05-02] MEDS: HYDROCHLOROTHIAZIDE 25 MG TABLET (FP) PO SCH (09:10)
[2022-05-02] MEDS: EZETIMIBE 10 MG TABLET (FP) PO SCH (09:11)
[2022-05-02] MEDS: LOSARTAN POTASSIUM 50 MG TABLET PO SCH (09:11)
[2022-05-02] MEDS: APIXABAN 5 MG TABLET PO SCH (09:11)
[2022-05-02] MEDS: BUDESONIDE/FORMETEROL FUMARATE 160/4.5 mcg INHALER IH SCH (09:12)
[2022-05-02] MEDS: DRONEDARONE HCL 400 MG TAB (FP) PO SCH (09:13)
[2022-05-02 14:27] VITALS: BP 125/65; RESP 18; TEMP 98
== END 2022-05-02 18:57 | disposition home health service (06) | DRG 603 ==
LOC: JER 12:19 → JERBED 16:18 → J6S 18:20
PROVIDERS: ADMIT Internal Medicine; ATTEND Internal Medicine
PROC: 0J990ZZ Drainage of Buttock Subcutaneous Tissue and Fascia, Open Approach (ICD-10-PCS; principal; 2022-04-27 13:00)
DX: L02.31 Cutaneous abscess of buttock (principal); I48.91 Unspecified atrial fibrillation; Z79.01 Long term (current) use of anticoagulants; I25.10 Atherosclerotic heart disease of native coronary artery without angina pectoris; E11.9 Type 2 diabetes mellitus without complications; I87.2 Venous insufficiency (chronic) (peripheral); E78.5 Hyperlipidemia, unspecified; E66.9 Obesity, unspecified; Z68.35 Body mass index [BMI] 35.0-35.9, adult; I10 Essential (primary) hypertension; Z86.16 Personal history of COVID-19; B95.62 Methicillin resistant Staphylococcus aureus infection as the cause of diseases classified elsewhere
CPT/HCPCS: 0241U-QW; 36415; 74177-TC; 80053; 82962; 85025; 85610; 85730; 86850; 86900; 86901; 87040; 87070; 87186; 87205; 93005; 93010; 94760; 99285-25; G0480; Q9967

== ENCOUNTER 2022-06-22 15:07 | Inpatient (IN) | payer OTHER ==
[2022-06-22] MEDS ORDERED: SODIUM CHLORIDE 0.9% 1000 ML INFUS.BAG IV ONE (16:48)
[2022-06-22] MEDS ORDERED: FAMOTIDINE 20 MG/50 ML IVPB 20 MG/50 ML MG IVPB ONE ×2 (16:48→17:14)
[2022-06-22] MEDS ORDERED: ONDANSETRON 4 MG/2 ML VIAL IVPUSH ONE (16:48)
[2022-06-22] MEDS ORDERED: ACETAMINOPHEN 1000 MG/100 ML BAG IVPB ONE (16:48)
[2022-06-22] MEDS ORDERED: ONDANSETRON 4 MG/2 ML VIAL ONE (17:13)
[2022-06-22] MEDS ORDERED: ACETAMINOPHEN INJECTION 100 ML IVPB ONE (17:13)
[2022-06-22 17:52] LABS: HEMATOCRIT 33.5 % (32.4-45.2); HEMOGLOBIN 11.1 GM/dL (10.7-15.3); MCH 29.6 pg (25.7-33.7); MCHC 33.1 g/dl (32.0-36.0); MEAN CELL VOLUME 89.5 fl (80-96); MEAN PLT VOLUME 7.3 fl (7.5-11.1); PLATELET COUNT 224 10^3/uL (134-434); RBC 3.74 M/mm3 (3.60-5.2); WHITE BLOOD COUNT 8.2 K/mm3 (4.0-10.0)
[2022-06-22 18:09] LABS: EPI CELLS >36 /uL (0-25.1); HYALINE CASTS 2 /uL (0-3.1); URINE APPEARANCE CLOUDY; URINE BACTERIA 80 /uL (0-1359); URINE BILIRUBIN NEGATIVE (NEGATIVE); URINE COLOR YELLOW; URINE GLUCOSE (UA) NEGATIVE (NEGATIVE); URINE KETONE NEGATIVE (NEGATIVE); URINE LEUK ESTERASE 3+ (NEGATIVE); URINE NITRITE NEGATIVE (NEGATIVE); URINE PROTEIN 1+ (NEGATIVE); URINE RBC 10 /uL (0-23.9); URINE WBC 332 /uL (0-25.8)
[2022-06-22] MEDS ORDERED: morphine CARPU-JECT 4 MG/1 ML DISP.SYRIN IVPUSH ONE (18:19)
[2022-06-22 20:30] LABS: ALBUMIN 2.7 g/dl (3.4-5.0); BLOOD UREA NITROGEN 16.2 mg/dL (7-18)
[2022-06-22 20:35] LABS: BILIRUBIN,TOTAL 0.9 mg/dL (0.2-1); TOT PROT 5.5 g/dl (6.4-8.2)
[2022-06-22] MEDS ORDERED: CEFTRIAXONE 1 GM in DEXTROSE 5%-WATER - 100 ML IVPB ONE (23:38)
[2022-06-22] MEDS ORDERED: POTASSIUM CHLORIDE TABS 20 MEQ TABLET.ER (FP) PO ONE ×2 (23:42→23:50)
[2022-06-22] MEDS ORDERED: CEFTRIAXONE 1 GM/50 ML BAG ONE (23:51)
[2022-06-23] MEDS: LACTATED RINGERS SOLUTION 1,000 ML/1,000 ML INFUS.BAG IV SCH ×2 (00:06→13:46)
[2022-06-23] MEDS: APIXABAN 5 MG TABLET PO SCH ×3 (00:06→21:53)
[2022-06-23 06:12] VITALS: BMI 32.1
[2022-06-23] MEDS ORDERED: ACETAMINOPHEN 325 MG TABLET (FP) PO PRN (07:35)
[2022-06-23] MEDS ORDERED: ALBUTEROL SO4 HFA INHALER IH PRN (07:38)
[2022-06-23] MEDS ORDERED: POTASSIUM CHLORIDE ORAL LIQUID 20 MEQ/15 ML PO ONE (07:47)
[2022-06-23] MEDS: CEFTRIAXONE 1 GM in DEXTROSE 5%-WATER - 50 ML IVPB SCH (09:31)
[2022-06-23] MEDS: LOSARTAN POTASSIUM 50 MG TABLET PO SCH (09:32)
[2022-06-23] MEDS: EZETIMIBE 10 MG TABLET (FP) PO SCH (09:32)
[2022-06-23] MEDS: HYDROCHLOROTHIAZIDE 25 MG TABLET (FP) PO SCH (09:32)
[2022-06-23] MEDS: glipiZIDE-XL 2.5 MG TAB.ER.24 PO SCH (09:33)
[2022-06-23] MEDS: DRONEDARONE HCL 400 MG TAB (FP) PO SCH ×2 (09:34→21:53)
[2022-06-23] MEDS ORDERED: PATIENT'S OWN MEDICATION (NON-FORMULARY) (Losartan/Hydrochlorothiazide [Losartan-Hctz 100- PO SCH (10:00)
[2022-06-23] MEDS: INSULIN (LEVEMIR) 100 UNITS/ML UNITS SQ SCH (21:53)
[2022-06-23] MEDS: ROSUVASTATIN CA 20 MG TABLET PO SCH (21:53)
[2022-06-24] MEDS: LACTATED RINGERS SOLUTION 1,000 ML/1,000 ML INFUS.BAG IV SCH ×2 (01:52→16:53)
[2022-06-24] MEDS: glipiZIDE-XL 2.5 MG TAB.ER.24 PO SCH (06:59)
[2022-06-24] MEDS: HYDROCHLOROTHIAZIDE 25 MG TABLET (FP) PO SCH (09:14)
[2022-06-24] MEDS: APIXABAN 5 MG TABLET PO SCH ×2 (09:14→21:37)
[2022-06-24] MEDS: EZETIMIBE 10 MG TABLET (FP) PO SCH (09:14)
[2022-06-24] MEDS: LOSARTAN POTASSIUM 50 MG TABLET PO SCH (09:14)
[2022-06-24] MEDS: DRONEDARONE HCL 400 MG TAB (FP) PO SCH ×2 (09:15→21:37)
[2022-06-24] MEDS: CEFTRIAXONE 1 GM in DEXTROSE 5%-WATER - 50 ML IVPB SCH (09:15)
[2022-06-24 11:32] LABS: BASO % 0.5 % (0-2.0); EOS % 2.7 % (0-4.5); HEMATOCRIT 31.5 % (32.4-45.2); HEMOGLOBIN 10.8 GM/dL (10.7-15.3); LYMPH % 22.9 % (8-40); MCH 29.7 pg (25.7-33.7); MCHC 34.2 g/dl (32.0-36.0); MEAN CELL VOLUME 86.9 fl (80-96); MONO % 14.3 % (3.8-10.2); NEUT % 59.6 % (42.8-82.8); PLATELET COUNT 218 10^3/uL (134-434); RBC 3.63 M/mm3 (3.60-5.2); RDW 15.4 % (11.6-15.6); WHITE BLOOD COUNT 4.2 K/mm3 (4.0-10.0)
[2022-06-24 11:46] LABS: ALBUMIN 2.4 g/dl (3.4-5.0); BLOOD UREA NITROGEN 9.8 mg/dL (7-18)
[2022-06-24 11:49] LABS: CREATININE 1.2 mg/dL (0.55-1.3)
[2022-06-24 11:50] LABS: BILIRUBIN,TOTAL 0.5 mg/dL (0.2-1)
[2022-06-24 11:51] LABS: TOT PROT 5.3 g/dl (6.4-8.2)
[2022-06-24] MEDS: INSULIN (LEVEMIR) 100 UNITS/ML UNITS SQ SCH (21:37)
[2022-06-24] MEDS: ROSUVASTATIN CA 20 MG TABLET PO SCH (21:37)
[2022-06-25] MEDS: LACTATED RINGERS SOLUTION 1,000 ML/1,000 ML INFUS.BAG IV SCH ×2 (01:44→06:17)
[2022-06-25] MEDS: glipiZIDE-XL 2.5 MG TAB.ER.24 PO SCH (06:16)
[2022-06-25] MEDS: HYDROCHLOROTHIAZIDE 25 MG TABLET (FP) PO SCH (10:32)
[2022-06-25] MEDS: APIXABAN 5 MG TABLET PO SCH (10:32)
[2022-06-25] MEDS: LOSARTAN POTASSIUM 50 MG TABLET PO SCH (10:32)
[2022-06-25] MEDS: EZETIMIBE 10 MG TABLET (FP) PO SCH (10:32)
[2022-06-25] MEDS: DRONEDARONE HCL 400 MG TAB (FP) PO SCH (10:33)
[2022-06-25] MEDS: CEFTRIAXONE 1 GM in DEXTROSE 5%-WATER - 50 ML IVPB SCH (10:33)
[2022-06-25] MEDS ORDERED: INSULIN (NOVOLOG) ASPART 100 UNITS/ML 10ML VIAL ONE (22:47)
[2022-06-26] MEDS: ROSUVASTATIN CA 20 MG TABLET PO SCH ×2 (00:06→22:56)
[2022-06-26] MEDS: APIXABAN 5 MG TABLET PO SCH ×3 (00:08→22:56)
[2022-06-26] MEDS: INSULIN (LEVEMIR) 100 UNITS/ML UNITS SQ SCH ×2 (00:09→22:56)
[2022-06-26] MEDS: DRONEDARONE HCL 400 MG TAB (FP) PO SCH ×3 (00:15→23:47)
[2022-06-26] MEDS: LACTATED RINGERS SOLUTION 1,000 ML/1,000 ML INFUS.BAG IV SCH ×2 (01:58→23:47)
[2022-06-26] MEDS: glipiZIDE-XL 2.5 MG TAB.ER.24 PO SCH (07:33)
[2022-06-26] MEDS: POTASSIUM CHLORIDE TABS 10 MEQ TABLET.ER (FP) PO SCH (11:07)
[2022-06-26] MEDS: EZETIMIBE 10 MG TABLET (FP) PO SCH (11:07)
[2022-06-26] MEDS: HYDROCHLOROTHIAZIDE 25 MG TABLET (FP) PO SCH (11:08)
[2022-06-26] MEDS: LOSARTAN POTASSIUM 50 MG TABLET PO SCH (11:08)
[2022-06-26] MEDS: CEFTRIAXONE 1 GM in DEXTROSE 5%-WATER - 50 ML IVPB SCH (11:08)
[2022-06-27] MEDS: glipiZIDE-XL 2.5 MG TAB.ER.24 PO SCH (06:42)
[2022-06-27] MEDS ORDERED: LOPERAMIDE HCL 2 MG CAPSULE PO PRN (09:17)
[2022-06-27] MEDS: POTASSIUM CHLORIDE TABS 10 MEQ TABLET.ER (FP) PO SCH (10:19)
[2022-06-27] MEDS: DRONEDARONE HCL 400 MG TAB (FP) PO SCH ×2 (10:19→23:05)
[2022-06-27] MEDS: EZETIMIBE 10 MG TABLET (FP) PO SCH (10:19)
[2022-06-27] MEDS: APIXABAN 5 MG TABLET PO SCH ×2 (10:19→23:04)
[2022-06-27] MEDS: LOSARTAN POTASSIUM 50 MG TABLET PO SCH (10:19)
[2022-06-27] MEDS: HYDROCHLOROTHIAZIDE 25 MG TABLET (FP) PO SCH (10:19)
[2022-06-27 10:29] LABS: CALCIUM 8.3 mg/dL (8.5-10.1)
[2022-06-27 10:30] LABS: BLOOD UREA NITROGEN 6.5 mg/dL (7-18); CREATININE 1.2 mg/dL (0.55-1.3)
[2022-06-27] MEDS ORDERED: POTASSIUM CHLORIDE TABS 20 MEQ TABLET.ER (FP) PO SCH (10:36)
[2022-06-27] MEDS: CEFTRIAXONE 1 GM in DEXTROSE 5%-WATER - 50 ML IVPB SCH (11:26)
[2022-06-27] MEDS: LACTATED RINGERS SOLUTION 1,000 ML/1,000 ML INFUS.BAG IV SCH ×2 (14:48→23:45)
[2022-06-27] MEDS: INSULIN (LEVEMIR) 100 UNITS/ML UNITS SQ SCH (23:04)
[2022-06-27] MEDS: ROSUVASTATIN CA 20 MG TABLET PO SCH (23:04)
[2022-06-28] MEDS: glipiZIDE-XL 2.5 MG TAB.ER.24 PO SCH (06:50)
[2022-06-28] MEDS: LACTATED RINGERS SOLUTION 1,000 ML/1,000 ML INFUS.BAG IV SCH (07:47)
[2022-06-28] MEDS: APIXABAN 5 MG TABLET PO SCH ×2 (11:13→21:45)
[2022-06-28] MEDS: LOSARTAN POTASSIUM 50 MG TABLET PO SCH (11:14)
[2022-06-28] MEDS: EZETIMIBE 10 MG TABLET (FP) PO SCH (11:15)
[2022-06-28] MEDS: HYDROCHLOROTHIAZIDE 25 MG TABLET (FP) PO SCH (11:16)
[2022-06-28] MEDS: DRONEDARONE HCL 400 MG TAB (FP) PO SCH ×2 (11:17→21:45)
[2022-06-28] MEDS: CEFTRIAXONE 1 GM in DEXTROSE 5%-WATER - 50 ML IVPB SCH (11:18)
[2022-06-28 16:45] LABS: BASO % 0.7 % (0-2.0); EOS % 3.9 % (0-4.5); HEMATOCRIT 33.5 % (32.4-45.2); HEMOGLOBIN 11.4 GM/dL (10.7-15.3); LYMPH % 22.6 % (8-40); MCH 28.9 pg (25.7-33.7); MEAN CELL VOLUME 85.1 fl (80-96); MONO % 15.7 % (3.8-10.2); NEUT % 57.1 % (42.8-82.8); PLATELET COUNT 272 10^3/uL (134-434); RBC 3.94 M/mm3 (3.60-5.2); RDW 15.2 % (11.6-15.6)
[2022-06-28 17:05] LABS: ALBUMIN 2.6 g/dl (3.4-5.0); BLOOD UREA NITROGEN 5.3 mg/dL (7-18); CALCIUM 8.4 mg/dL (8.5-10.1)
[2022-06-28 17:08] LABS: CREATININE 1.2 mg/dL (0.55-1.3)
[2022-06-28 17:10] LABS: BILIRUBIN,TOTAL 0.4 mg/dL (0.2-1); TOT PROT 5.3 g/dl (6.4-8.2)
[2022-06-28] MEDS ORDERED: ONDANSETRON 4 MG/2 ML VIAL IVPUSH PRN (17:11)
[2022-06-28] MEDS: ROSUVASTATIN CA 20 MG TABLET PO SCH (21:44)
[2022-06-28] MEDS: INSULIN (LEVEMIR) 100 UNITS/ML UNITS SQ SCH (21:46)
[2022-06-29 03:37] VITALS: RESP 20
[2022-06-29] MEDS: glipiZIDE-XL 2.5 MG TAB.ER.24 PO SCH (07:34)
[2022-06-29 09:43] LABS: CALCIUM 8.4 mg/dL (8.5-10.1)
[2022-06-29 09:44] LABS: BLOOD UREA NITROGEN 4.4 mg/dL (7-18)
[2022-06-29 09:46] LABS: CREATININE 1.2 mg/dL (0.55-1.3)
[2022-06-29 09:47] LABS: BASO % 0.7 % (0-2.0); EOS % 2.8 % (0-4.5); HEMATOCRIT 31.8 % (32.4-45.2); HEMOGLOBIN 11.1 GM/dL (10.7-15.3); LYMPH % 26.1 % (8-40); MCH 29.7 pg (25.7-33.7); MCHC 34.9 g/dl (32.0-36.0); MEAN CELL VOLUME 85.2 fl (80-96); MEAN PLT VOLUME 7.2 fl (7.5-11.1); MONO % 14.2 % (3.8-10.2); NEUT % 56.2 % (42.8-82.8); PLATELET COUNT 304 10^3/uL (134-434); RBC 3.73 M/mm3 (3.60-5.2)
[2022-06-29] MEDS ORDERED: POTASSIUM CHLORIDE TABS 20 MEQ TABLET.ER (FP) PO SCH (10:00)
[2022-06-29] MEDS: EZETIMIBE 10 MG TABLET (FP) PO SCH (10:17)
[2022-06-29] MEDS: APIXABAN 5 MG TABLET PO SCH (10:17)
[2022-06-29] MEDS: HYDROCHLOROTHIAZIDE 25 MG TABLET (FP) PO SCH (10:17)
[2022-06-29] MEDS: CEFTRIAXONE 1 GM in DEXTROSE 5%-WATER - 50 ML IVPB SCH (10:17)
[2022-06-29] MEDS: LOSARTAN POTASSIUM 50 MG TABLET PO SCH (10:17)
[2022-06-29] MEDS: DRONEDARONE HCL 400 MG TAB (FP) PO SCH (10:19)
[2022-06-29] MEDS: LACTATED RINGERS SOLUTION 1,000 ML/1,000 ML INFUS.BAG IV SCH (12:52)
[2022-06-29 15:15] VITALS: BP 113/53; PULSE 59; TEMP 98.6
== END 2022-06-29 18:02 | disposition home health service (06) | DRG 392 ==
LOC: JER 15:07 → JERBED 23:46 → J8W 06-23 01:53
PROVIDERS: ADMIT Internal Medicine; ATTEND Internal Medicine
DX: K57.92 Diverticulitis of intestine, part unspecified, without perforation or abscess without bleeding (principal); N39.0 Urinary tract infection, site not specified; K52.9 Noninfective gastroenteritis and colitis, unspecified; E11.9 Type 2 diabetes mellitus without complications; I10 Essential (primary) hypertension; I48.91 Unspecified atrial fibrillation; I08.3 Combined rheumatic disorders of mitral, aortic and tricuspid valves; E78.5 Hyperlipidemia, unspecified; I25.10 Atherosclerotic heart disease of native coronary artery without angina pectoris; E87.6 Hypokalemia; E66.9 Obesity, unspecified; Z68.32 Body mass index [BMI] 32.0-32.9, adult
CPT/HCPCS: 0241U-QW; 36415; 74177-TC; 80048; 80053; 81003; 82962; 83993; 84484; 85025; 85027; 86140; 86850; 86900; 86901; 87045; 87046; 87086; 87186; 87205; 87324; 87449; 93005; 93010; 99285-25; Q9967

== ENCOUNTER 2023-10-12 18:34 | Emergency (ER) | payer OTHER ==
[2023-10-12 18:40] VITALS: BMI 33.3
[2023-10-12] MEDS ORDERED: LIDOCAINE 5% TOPICAL PATCH ONE (21:15)
[2023-10-12] MEDS ORDERED: ACETAMINOPHEN 325 MG TABLET (FP) ONE (21:15)
[2023-10-12 21:20] LABS: EPI CELLS 5 /uL (0-25.1); HYALINE CASTS 0 /uL (0-3.1); URINE APPEARANCE CLEAR; URINE BACTERIA 7 /uL (0-1359); URINE BILIRUBIN NEGATIVE (NEGATIVE); URINE COLOR YELLOW; URINE GLUCOSE (UA) NEGATIVE (NEGATIVE); URINE KETONE NEGATIVE (NEGATIVE); URINE LEUK ESTERASE TRACE (NEGATIVE); URINE NITRITE NEGATIVE (NEGATIVE); URINE PROTEIN NEGATIVE (NEGATIVE); URINE RBC 7 /uL (0-23.9); URINE UROBILINOGEN 0.2 mg/dL (0.2-1.0); URINE WBC 20 /uL (0-25.8)
[2023-10-12] MEDS: LIDOCAINE PATCH REMOVAL MC SCH (21:24)
[2023-10-12] MEDS: LIDOCAINE 5% TOPICAL PATCH TP ONE (21:24)
[2023-10-12] MEDS: ACETAMINOPHEN 500 MG TABLET (FP) PO ONE (21:24)
[2023-10-12 22:24] LABS: BASO % 0.5 % (0-2.0); EOS % 1.5 % (0-4.5); HEMATOCRIT 35.8 % (32.4-45.2); HEMOGLOBIN 11.8 GM/dL (10.7-15.3); LYMPH % 24.6 % (8-40); MCH 30.1 pg (25.7-33.7); MCHC 33.1 g/dl (32.0-36.0); MEAN CELL VOLUME 91.1 fl (80-96); MEAN PLT VOLUME 6.5 fl (7.5-11.1); MONO % 13.9 % (3.8-10.2); NEUT % 59.5 % (42.8-82.8); PLATELET COUNT 198 10^3/uL (134-434); RBC 3.93 M/mm3 (3.60-5.2); RDW 15.6 % (11.6-15.6); WHITE BLOOD COUNT 5.5 K/mm3 (4.0-10.0)
[2023-10-12 22:42] LABS: POTASSIUM 3.7 mmol/L (3.5-5.1)
[2023-10-12 22:44] LABS: BLOOD UREA NITROGEN 24.5 mg/dL (7-18); CALCIUM 9.1 mg/dL (8.5-10.1)
[2023-10-12 22:45] LABS: ALBUMIN 3.2 g/dl (3.4-5.0)
[2023-10-12 22:46] LABS: CREATININE 1.3 mg/dL (0.55-1.3)
[2023-10-12 22:49] LABS: BILIRUBIN,TOTAL 0.8 mg/dL (0.2-1)
[2023-10-12] MEDS: KETOROLAC TROMETHAMINE 15 MG/ML VIAL IVPUSH ONE (23:53)
[2023-10-13 01:12] VITALS: BP 145/41; PULSE 85; RESP 18; TEMP 97.5
[2023-10-13] MEDS ORDERED: AMOX TR/POT CLAV 875MG/125MG TABLETS (FP) PO ONE (02:14)
== END 2023-10-13 02:38 | disposition home or self-care (01) ==
LOC: JER 18:34
DX: K52.9 Noninfective gastroenteritis and colitis, unspecified (principal); M54.50 Low back pain, unspecified; G89.29 Other chronic pain
CPT/HCPCS: 36415; 72070-TC-FY; 72100-TC-FY; 72170-TC-FY; 73502-TC-LT-FY; 74176-TC; 80053; 81003; 85025; 93005; 93010; 99285-25